=== PATIENT | male | born 1945 | race Caucasian/White ===

== ENCOUNTER → 2018-02-17 10:19 | Outpatient (CLI) | payer MEDICARE, OTHER, SELFPAY ==
[2018-02-17 12:15] LABS: PSA,Total- Diagnostic 6.44 ng/mL (0.0-4.0)
== END ==
PROVIDERS: Family Provider Internal Medicine; PCP Internal Medicine; Visit Provider Nurse Practitioner Adult Health
DX: R97.20 Elevated prostate specific antigen [PSA] (principal)
CPT/HCPCS: 36415; 84153

== ENCOUNTER → 2018-03-10 08:00 | Outpatient (CLI) | payer MEDICARE, OTHER, SELFPAY ==
--- NOTE | 2018-03-11 | PROSBIL_PTH ---
PATIENT: CHICHO TORRES LOC: [facility] U#:[id number] AGE/SX: 80/M ROOM: RE03/10/[address]: Dr. Agustín Sargent MD : 1945 BED: DIS: SPEC #: [id number] RECD: 03/11/18 13:07 STATUS: GONZALO GLENNA #: [id number] IND[place]: 03/11/18 00:[address]: Agustín Sargent DEPT: SURGICAL PATHOLOGY RECD BY: Orlando Edwards ENTERED: 03/11/18 13:08 SP TYPE: PROST BX WESLEY DR: Dr. Harshil Howell MD Tissues: A - PROSTATE RIGHT B - PROSTATE RIGHT C - PROSTATE RIGHT D - PROSTATE LEFT E - PROSTATE LEFT F - PROSTATE LEFT Procedures: PROSTATE BX HEADER OPERATION: Prostate biopsy PRE-OP DIAGNOSIS: Elevated PSA TISSUE SUBMITTED: A - Right apex, B - Right mid, C - Right base, D - Left apex, E - Left mid, F - Left base MICROSCOPIC DIAGNOSIS A. Right prostate, apex, core biopsy: Chronic inflammation with focal acute inflammation. Glandular atrophy. Focal high-grade prostatic intraepithelial neoplasia (HGPIN). B. Right prostate, mid, core biopsy: Chronic inflammation and focal glandular atrophy. C. Right prostate, base, core biopsy: Mild chronic inflammation and focal glandular atrophy. D. Left prostate, apex, core biopsy: Mild chronic inflammation. E. Left prostate, mid, core biopsy: Adenocarcinoma: [place] grade: 6 (3+3) Cores involved: 2 out of 2 Tissue involved: 50% Greatest tumor length: 5 mm F. Left prostate, base, core biopsy: Adenocarcinoma: [place] grade: 7 (3+4) Cores involved: 2 out of 2 Tissue involved: 90% Greatest tumor length: 10 mm (discontinuous) AM:alie 03/12/18 COMMENT Case has been reviewed in consultation with Dr. Sheppard who concurs with the above diagnosis. IDC:SJ MICROSCOPIC DESCRIPTION Slides are reviewed. GROSS DESCRIPTION A - Received is one container designated prostate, right apex. The specimen consists of two elongated fragments of light jerry-white soft tissue each measuring 0.6 cm in length and 0.1 cm in diameter. The specimen is totally submitted in one cassette. B - Received is one container designated prostate, right mid. The specimen consists of two elongated fragments of light jerry-white soft tissue each measuring 0.7 cm in length and 0.1 cm in diameter. The specimen is totally submitted in one cassette. C - Received is one container designated prostate, right base. The specimen consists of two elongated fragments of light jerry-white soft tissue measuring 0.7 and 1.3 cm in length and 0.1 cm in diameter. The specimen is totally submitted in one cassette. D - Received is one container designated prostate, left apex. The specimen consists of one elongated fragment of light jerry-white soft tissue measuring 1.2 cm in length and 0.1 cm in diameter. The specimen is totally submitted in one cassette. E - Received is one container designated prostate, left mid. The specimen consists of two elongated fragments of light jerry-white soft tissue measuring 0.5 and 0.7 cm in length and 0.1 cm in diameter. The specimen is totally submitted in one cassette. F - Received is one container designated prostate, left base. The specimen consists of two elongated fragments of light jerry-white soft tissue measuring 1.2 and 1.5 cm in length and 0.1 cm in diameter. The specimen is totally submitted in one cassette. / SJ:rg 03/11/18 TC:0 CPT: G0146
== END ==
PROVIDERS: Family Provider Internal Medicine; PCP Internal Medicine; Referring Provider Urology; Visit Provider Urology
DX: C61 Malignant neoplasm of prostate (principal); N42.31 Prostatic intraepithelial neoplasia
CPT/HCPCS: 88305; G0416

== ENCOUNTER → 2018-03-31 07:45 | Outpatient (CLI) | payer MEDICARE, OTHER, SELFPAY ==
--- NOTE | 2018-03-31 08:19 | NM_ITS ---
CLINICAL: 73-year-old male with reported history of primary prostate carcinoma. WHOLE BODY 99m Tc MDP RADIONUCLIDE BONE SCINTIGRAPHY COMPARISON: None available FINDINGS: Following the intravenous administration of 24.6 mCi of 99m Tc MDP, whole body bone images reveal: 1. Increased radiopharmaceutical concentration is identified in the upper-mid cervical spine posteriorly on the left and right, the acromioclavicular and sternoclavicular compartments of both shoulders, elbows bilaterally, left wrist, fifth lumbar vertebra posteriorly on the left, right and left knees, the left midfoot. 2. The remaining skeletal structures are scintigraphically unremarkable with normal-appearing renal images and urinary bladder activity identified. NM/Bone Scan Whole Body IMPRESSION: 1. The increase in radiopharmaceutical concentration identified in the cervical and lumbar spine, bilateral shoulder and elbow articulations, left wrist, knees bilaterally and left midfoot is most consistent with degenerative arthritis. 2. There is no definitive typical scintigraphic evidence of skeletal metastatic disease on the current examination. Electronically Signed: Prem Cannon DO at 23:57 EDT Tel , Service support ,
== END ==
PROVIDERS: Family Provider Internal Medicine; PCP Internal Medicine; Referring Provider Urology; Visit Provider Urology
DX: C61 Malignant neoplasm of prostate (principal)
CPT/HCPCS: 78306

== ENCOUNTER → 2018-04-06 13:09 | Outpatient (CLI) | payer MEDICARE, OTHER, SELFPAY ==
--- NOTE | 2018-04-06 13:13 | CT_ITS ---
STUDY: CT ABDOMEN AND PELVIS WITH CONTRAST REASON FOR EXAM: Male, 73 years old. New diagnosis of prostate cancer RADIATION DOSAGE (If Supplied By Facility): CTDIvol = ( 13.23 ) mGy, DLP = ( 715.02 ) mGycm TECHNIQUE: Transaxial images were obtained from the dome of the diaphragm to the symphysis pubis without oral contrast. 100 ml of Isovue 300 contrast was administered. Sagittal and coronal images were reconstructed. Individualized dose optimization techniques were used for this CT. COMPARISON: 2014 FINDINGS: There are chronic interstitial fibrotic changes of the lung bases. The visualized portions of the heart are within normal limits. There is decreased attenuation of the liver consistent with steatosis. There are multiple gallstones. Normal spleen. Normal pancreas. Normal bilateral adrenal glands. Normal right kidney. Normal left kidney. Normal visualized stomach. Normal small intestine. Normal colon. There is non-visualization of the appendix. Normal abdominal aorta. Normal inferior vena cava. Normal retroperitoneum. Normal urinary bladder. There is enlargement of the prostate gland. Normal abdominal wall. Normal osseous structures. CT/Abdomen/Pelvis WITH Contrast IMPRESSION: Fatty liver, no discrete lesion Cholelithiasis Prostate enlargement with calcifications, no demonstrated mass Electronically Signed: Arnulfo Alvarenga MD at 13:17 EST , Service support ,
[2018-04-06 13:41] LABS: CREATININE FINGERSTICK 0.8 mg/dL (0.70-1.30)
== END ==
PROVIDERS: Family Provider Internal Medicine; PCP Internal Medicine; Referring Provider Urology; Visit Provider Urology
DX: C61 Malignant neoplasm of prostate (principal)
CPT/HCPCS: 74177; Q9967

== ENCOUNTER 2018-05-13 06:22 | Inpatient (IN) | payer MEDICARE, OTHER, SELFPAY ==
[2018-05-05 14:43] VITALS: BP 146/86; PULSE 61; RESP 16; TEMP 36.9; O2SAT 95; BMI 31.8
[2018-05-05 14:45] LABS: Hematocrit 42.4 % (40-54); Hemoglobin 14.2 g/dl (13.0-16.5); Mean Corp Hgb Conc 33.5 g/gl (32-36); Mean Corpuscular Volume 92.6 fL (80-94); Mean Platelet Vol. 10.2 fl (6.2-12.0); Platelet Count 185 K/mm3 (150-450); RBC Distribution Width SD 43.5 fl (35.1-43.9); Red Blood Count 4.58 M/mm3 (4.6-6.2); Scan Indicated on CBC? Y/N NO; White Blood Count 4.6 K/mm3 (4.4-11.0)
[2018-05-05 15:04] LABS: Anion Gap 8 (5-15); BUN 17 mg/dL (7-18); BUN/Creat Ratio 12.1 RATIO (10-20); Calcium,Total 9.5 mg/dL (8.5-10.1); Chloride 107 mmol/L (98-107); Creatinine, Serum 1.41 mg/dL (0.70-1.30); EST Glomerular Filtration Rate 53 mL/min (>60); Est Glom Filt Rate - Afr Amer 64 mL/min (>60); Estimated Creatinine Clearance 38.67 ml/min; Glucose 99 mg/dL (74-106); Potassium 3.9 mmol/L (3.5-5.1); Sodium Level 144 mmol/L (136-145)
[2018-05-13] VITALS (11 sets, daily range): BP systolic 105–128; BP diastolic 51–76; PULSE 64–93; RESP 16; TEMP 36.1–36.9; O2SAT 92–95; BMI 31.8
--- NOTE | 2018-05-13 | PROST_PTH ---
PATIENT: CHICHO TORRES LOC: [facility] U#:[id number] AGE/SX: 73/M ROOM: [id number] RE05/13/[address]: Dr. Agustín Sargent MD : 1945 BED: 1 DIS: 05/15/2018 SPEC #: [id number] RECD: 05/13/18 15:14 STATUS: GONZALO GLENNA #: [id number] [place]: 05/13/18 00:[address]: Agustín Sargent DEPT: SURGICAL PATHOLOGY RECD BY: Orlando Edwards ENTERED: 05/13/18 15:15 SP TYPE: PROSTATE OTHR DR: Dr. Harshil Howell MD Tissues: A - Lymph node of pelvis, NOS B - Lymph node of pelvis, NOS C - Adipose tissue D - Prostate, NOS Procedures: Surgery Specimen Level IV Surgery Specimen Level V Surgery Specimen Level HEADER OPERATION: Lap robotic prostatectomy, nerve monitoring PRE-OP DIAGNOSIS: Malignant neoplasm of prostate TISSUE SUBMITTED: A - Right lymph node, pelvic, B - Left lymph node, pelvic, C - Fat over prostate, D - Prostate MICROSCOPIC DIAGNOSIS A. Right pelvic lymph node, biopsy: One lymph node, negative for metastatic carcinoma. B. Left pelvic lymph node, biopsy: One lymph node, negative for metastatic carcinoma. C. Fat over prostate, biopsy: Mature adipose tissue, negative for carcinoma. D. Prostate, radical prostatectomy: Prostatic adenocarcinoma. See cancer summary below. SJ:alie 05/15/18 PROSTATE CANCER (RADICAL) SUMMARY: Procedure - radical prostatectomy Prostate size - 3.5 cm from apex to base, 4 cm transversely and 4 cm anterior posteriorly Prostate weight - 52 gm Lymph node sampling - pelvic lymph node dissection Histologic type - adenocarcinoma (acinar, not otherwise specified) Histologic grade (Alanna Pattern): Primary pattern - 3 Secondary pattern - 4 Tertiary pattern - not identified Total [place] score - 7 Tumor Quantitation: Proportion (%) of prostate involved by tumor - ~10% Extraprostatic extension - not identified Seminal vesicle invasion - not identified Margins - margins are free of tumor. Treatment effect on carcinoma - no known presurgical therapy Lymph-Vascular invasion - not identified Perineural invasion - present, focal Regional lymph nodes: Number examined - 2 Number involved - 0 Distant metastasis - not applicable Additional pathologic findings - chronic inflammation. - Focal high-grade prostatic intraepithelial neoplasia (HGPIN). Ancillary studies - PATHOLOGIC STAGE: pT2c pN0 Mx The above summary is in compliance with [employer] [place] [employer] (CAP) Cancer Protocols Checklist and [place] Joint Committee on Cancer (AJCC), Staging Manual, 8th Ed. COMMENT The tumor in the right lobe involves the middle portion of the prostate, and present in slide # 12 and 14 and measures 0.6 x 0.3 cm (measured microscopically). The tumor in the left lobe involves apical, mid and basal portion of the prostate, and present in slide # 7, 8, 11, 13 and 20 and measures 2.5 x 1 cm (measured microscopically). Please make reference to previous specimen ([id number]) left prostate, mid, core biopsy and left prostate, base, core biopsy with diagnosis of adenocarcinoma. Case has been reviewed in consultation with Dr. Almanzar who concurs with the above diagnosis. IDC:AM MICROSCOPIC DESCRIPTION Slides are reviewed. GROSS DESCRIPTION A - Received in fixative is one container labeled with the patient's name and designated right lymph node pelvic. The specimen consists of a piece of yellow adipose tissue measuring 2.5 x 1 x 0.5 cm. The specimen is bisected and submitted entirely in one cassette. It will be submitted after overnight fixation. / : 05/13/18 B - Received in fixative is one container labeled with the patient's name and designated left lymph node pelvic. The specimen consists of a piece of yellow adipose tissue measuring 2 x 2 x 0.7 cm. The specimen is bisected and submitted entirely in one cassette. Sections will be submitted after overnight fixation. / : 05/13/18 C - Received in fixative is one container labeled with the patient's name and designated fat over prostate. The specimen consists of two variable sized pieces of yellow adipose tissue that in aggregate measure 4 x 3 x 0.5 cm. No mass lesion is identified. The entire specimen is submitted in two cassettes. Sections will be submitted after overnight fixation. / : 05/13/18 D - Received in fixative is one container labeled with the patient's name and designated prostate. The specimen consists of a radical prostatectomy specimen consisting of prostate, bilateral seminal vesicles and vas deferens weighing 52 gm. The prostate measures 3.5 cm from apex to apex, 4 cm transversely and 4 cm anterior-posteriorly. The right seminal vesicle measures 2.5 x 1 x 0.5 cm and right vas deferens measures 2 cm in length and 0.5 cm in diameter. The left seminal vesicle measures 2 x 1 x 0.4 cm and left vas deferens measures 2.5 cm in length and 0.5 cm in diameter. The prostate is inked as follows: anterior surface - yellow, posterior surface - black, right lateral surface - blue, left lateral surface - green. The seminal vesicles and vas deferens are inked as follows: posterior surface right and left seminal vesicles and right and left vas deferens - black, anterior surface right seminal vesicle and vas deferens - blue, anterior surface left seminal vesicle and vas deferens - green. Sections do not reveal any obvious mass lesion. Ocean Import Representative sections are submitted in 20 cassettes as follows: 1 - right seminal vesicle and vas deferens, 2 - left seminal vesicle and vas deferens, 3 - apical margin, enface, 4?-?bladder base margin, enface, 5-9 - apical portion of prostate, 10-15 - middle portion prostate, 1620 - basal portion prostate. / EMORY:alie 05/14/18 TC:0 CPT: 14099, 32496 x2, 72127
--- NOTE | 2018-05-13 08:34 | PCM.DC.URO ---
Discharge Diet: Light diet - advance as tolerated, Soft diet Discharge Activity: May Not Drive, May not drive while taking narcotic pain medications., May Shower Return to work on:: 06/24/18 May shower in (days): 1 May resume sexual activity in: 6 weeks Call your doctor if your incision/area has: Continuous Slow Oozing, Sudden Increased Bleeding, Increased Pain/ Swelling, Increased Redness, Foul Smelling Discharge, Swelling at the incision site Call your doctor if you observe: Fever of 101 or Higher Suture Line Care: Avoid Pulling/Pushing, Avoid Pinching/Bending Catheter: Ceron to leg bag, Ceron to large bag Drain: [place] Instructions: Discharge Instructions for Radical Prostatectomy Allergies/Adverse Reactions: Allergies meperidine HCl [From Demerol] Adverse Reaction (Verified 05/05/18 14:35) diaphoretic,palpatations Medications to take at Discharge Amlodipine [Norvasc] 5 mg PO DAILY 05/05/18 Atenolol [Tenormin (Beta Elier)] 50 mg PO QHS 05/05/18 Atorvastatin Calcium [Lipitor] 40 mg PO QHS 05/05/18 Multivitamin [Multiple Vitamins] 1 each PO DAILY 05/05/18 Tamsulosin HCl [Flomax] 0.4 mg PO QHS 05/05/18 Acetaminophen [Tylenol Extra Strength] 500 mg PO Q4H PRN PRN #20 tablet 05/13/18 Ciprofloxacin [Cipro] 500 mg PO BID #14 tablet 05/13/18 Docusate Sodium [Colace] 100 mg PO BID #20 capsule 05/13/18 Ibuprofen [Motrin] 600 mg PO Q6H PRN PRN #20 tablet 05/13/18 The following prescriptions were given: Acetaminophen [Tylenol Extra Strength] 500 mg PO Q4H PRN PRN #20 tablet PRN Reason: Pain Ibuprofen [Motrin] 600 mg PO Q6H PRN PRN #20 tablet PRN Reason: Pain Ciprofloxacin [Cipro] 500 mg PO BID #14 tablet Docusate Sodium [Colace] 100 mg PO BID #20 capsule Orders to be completed after discharge: Type & Screen Time Frame: 05/13/18, Location: None Selected Primary Care Physician: Harshil Howell MD [Primary Care Provider] - Test Results: Test results from this visit will be discussed in further detail at your follow-up appointment, if applicable. Please Follow Up With: Agustín Sargent MD When: Next morning, call the office. Proposed Discharge Date: 05/14/18
[2018-05-13] MEDS: Cefazolin 2 GM in 0.9% Normal Saline 100 ML IV (08:35)
[2018-05-13] MEDS: Bupivacaine Mpf 0.5% 30 ML VIAL (12:20)
--- NOTE | 2018-05-13 12:25 | PCM.OPRPT ---
Report of Operation Date of Procedure: 05/13/18 Pre-Operative Diagnosis: Prostate cancer, BPH with obstruction urgency frequency Post-Operative Diagnosis: Same Surgery/Procedure Performed:: Laparoscopic robotic assisted radical prostatectomy with bilateral nerve sparing, left and right pelvic lymph node dissection, EMG monitoring of pelvic nerves and sphincter, suture suspension of the urethra Description of Surgical Findings:: 73-year-old male with a history of prostate cancer was counseled regarding the options of treatment we talked about doing radiation, surgery, observation, we talked about the side effects of radiation including radiation cystitis radiation proctitis fistula formation radiation injury and burn, we talked about the side effects of surgery including erectile dysfunction, impotence, lack of bladder control, leakage, risk with anesthesia risk of surgery, we talked about the risk of active surveillance including development of worse cancer non-curative cancer. After discussing the options with the patient he wants to proceed with radical prostatectomy when I do bilateral nerve sparing today. 73-year-old male taken back to the operating room after smooth induction of anesthesia he was placed supine on the table we then placed in the dorsolithotomy position for a robotic approach to the pelvis, the abdomen shaved and prepped and draped in usual sterile fashion, I advanced the Veress needle into the abdomen and created the peritoneal cavity with CO2 gas. We then placed our camera trocar right and left trocar second assistant fitness manager trocar we placed our air seal port, we placed a an assistant fitness manager suction trocar. Once I got into the abdomen dissected some of the adhesions of the colon against the lateral wall on the right side and some of the left side once this was released then I went posterior to the bladder identified the right vas deferens for the entire case we only used bipolar no electrocautery was used no monopolar just bipolar for caloric control and small vessels. I dissected out the right vas deferens followed down to the pelvis dissected out the right vas deferens and right seminal vesicle, I then dissected out the left vas deferens left seminal vesicle, I then incised the do not be his fascia and dissected the fat plane below the prostate and the rectum, we then pulled out of the pelvis I opened up the space of Retzius in the right side of the pelvis dropped the bladder open up the space of Retzius the left side of the bladder transected through the attachments of the medial and medial and middle umbilical ligaments transected through this electrocautery using bipolar, bladder was then placed on traction with the fourth arm, we then cleared out the space of Retzius went to the pelvic lymph nodes on the right side identified the right external obturator artery and vein dissected the lymph node tissue proximal to this up to the noted [place] and then off the lateral wall I dissected the lymph node tissue and then went down to the obturator nerve identified the obturator nerve and I dissected the tissue off the machine operator nerve and then put clips as I was dissecting this tissue off in the right side made sure to obtain good hemostasis and after dissecting the lymph node tissue in the right side the specimens were handed off to the nurse for permanent. The tissue looked benign in nature on gross inspection. We then went to the left side and identified the left iliac artery and iliac vein and the obturator space was then dissected out the lateral pelvic sidewall was cleaned off the noted [place] was taken to use clips as well as taking this and then came down to the obturator nerve on the left side. After clipping all the tissue then I used a little bipolar to control bleeding the machine operator nerve was not injured during the dissection and the tissue was sent off as a permanent section again this tissue appeared benign. I then cleaned the fat off the prostate this was sent off as fat fat over prostate as a specimen we then incised the lateral pelvic sidewall the fascia and dissected the levator muscles off the prostate all the way to the apex on the right side and then did this on the left side as well incised the endopelvic fascia and dissected the levator muscles off the prostate off the left side all the way up to the apex we then incised the prostate pubic O ligaments on both the left and right side transected to this and then I used a dorsal vein stitch and stitch the dorsal vein complex with a [id number] stitch using 0 Vicryl we then came back to the junction between the bladder and the prostate using bipolar I dissected between the bladder and prostate down to the catheter we then deliver the catheter put in upper traction and then dissected between the bladder and prostate posteriorly until I reached the vas deferens and seminal vesicles then we went to the left side of the prostate inspected the left side inspect the right side we passed the EMG electrodes into the abdomen passed the electrodes through the fat to hold him to the lateral sidewalls and then placed electrodes into the levator muscles in the right side and the left side of the pelvic lateral romero. We then checked for the placement of the the nerves we stimulated along the pelvic lateral wall and identified the nerves all the way up along the course of the prostate on the right side and all the way along the course of proximal in the left side these nerves were identified with the action potential seen on the screen with the EMG monitoring also the tech to verify the nerves were responding after both the right and left nerves were identified I then went to the prostate incised the capsule over the prostate swept the nerves off the prostate on the right side and then started retrograde retrograde dissection on the right side towards the pedicle once I have the nerves off the prostate in the right side then I could identify the pedicle clearly I clipped the pedicle with 2 clips and then transected to the pedicle and they could sweep the nerves off the prostate on the right side all the way to the apex these came off very nicely with no transection or injury to the nerves and no violation of the prostate capsule then went to the left side and identified the nerve bundle on the left side we used the EMG monitoring to relate these nerves and identified the action potential location of these nerves I incised the capsule the prostate swept the capsule off the prostate and then identified the nerve bundles running underneath the prostate capsule and gently swept this off the prostate and then worked all the way my way back in the left side and then came to the pedicle in the left side with clips and transected to the clips with with sharp scissors after transecting the vascular pedicles I then gently swept the nerve bundles off the left posterior through the prostate all the way to the apex after it been done dissecting the prostate nerve bundles off the prostate in the left and right side we then checked the EMG monitoring again right side was still firing and accurate action potential along the entire course of the right side left side was so far with good action potential the course of the left side I then dissected through the dorsal vein complex complex and transected through here circumferentially dissected around the urethra place extra stitches in the dorsal vein complex to control bleeding then transected through the prostate and urethra. The prostate was then removed the put in the Endo Catch bag inspected the urethra there was no prostate tissue and the urethra nice dissection on both sides with a good control of both the left and right nerve bundles and then we checked the EMG monitoring of the sphincter will put when the electrodes on the sphincter itself and stimulated I got a good response in a good action potential from the sphincter and a good coaptation from the sphincter itself. We then came back to the bladder neck for the suture suspension we first closed the bladder neck to make it nice and small and then we suspended the urethra with stitches and we went from the urethra to the bladder neck to complete the series suture suspension of the urethra to the bladder neck this was done over a catheter after completing this then catheter was put into the bladder and placement of the catheter 1 of the stitches had gone to the Jones catheter at the rate we at the pull the catheter up and then pulled the stitch off the catheter and then we put a new catheter into the bladder is a 18 [place] tip catheter we completed the anastomosis we flushed the bladder there was no leakage from what we could see we then left the drain and below the anastomosis we undocked the robot we extracted the prostate through the supraumbilical port we closed the port with interrupted 0 Vicryl stitches through the fascia and then we also closed the variceal port with a Juan Carlos Almendarez stitch all the needles were accounted for the sponges the dressings were accounted for minimal bleeding during the case patient's anesthetic is currently being reversed with minimal blood loss and a good anastomosis good sparing of both nerve bundles in the right left side and good preservation of the nerves with action potential that was positive after the dissection. Patient currently being extubated from anesthesia and will go to talk to the family. Type of Anesthesia:: General Drains: jones, Drain Estimated Blood Loss (mL): 100cc - Admit VTE Documentation VTE Present on Admission: No VTE Mechan Device Prophylaxis: SCD's
--- NOTE | 2018-05-13 12:36 | OP.PCM_ITS ---
Report of Operation Date of Procedure: 05/13/18 Pre-Operative Diagnosis: Prostate cancer, BPH with obstruction urgency frequency Post-Operative Diagnosis: Same Surgery/Procedure Performed:: Laparoscopic robotic assisted radical prostatectomy with bilateral nerve sparing, left and right pelvic lymph node dissection, EMG monitoring of pelvic nerves and sphincter, suture suspension of the urethra Description of Surgical Findings:: 73-year-old male with a history of prostate cancer was counseled regarding the options of treatment we talked about doing radiation, surgery, observation, we talked about the side effects of radiation including radiation cystitis radiation proctitis fistula formation radiation injury and burn, we talked about the side effects of surgery including erectile dysfunction, impotence, lack of bladder control, leakage, risk with anesthesia risk of surgery, we talked about the risk of active surveillance including development of worse cancer non- curative cancer. After discussing the options with the patient he wants to proceed with radical prostatectomy when I do bilateral nerve sparing today. 73-year-old male taken back to the operating room after smooth induction of anesthesia he was placed supine on the table we then placed in the dorsolithotomy position for a robotic approach to the pelvis, the abdomen shaved and prepped and draped in usual sterile fashion, I advanced the Veress needle into the abdomen and created the peritoneal cavity with CO2 gas. We then placed our camera trocar right and left trocar second assistant service manager trocar we placed our air seal port, we placed a an assistant service manager suction trocar. Once I got into the abdomen dissected some of the adhesions of the colon against the lateral wall on the right side and some of the left side once this was released then I went posterior to the bladder identified the right vas deferens for the entire case we only used bipolar no electrocautery was used no monopolar just bipolar for caloric control and small vessels. I dissected out the right vas deferens followed down to the pelvis dissected out the right vas deferens and right seminal vesicle, I then dissected out the left vas deferens left seminal vesicle, I then incised the do not be his fascia and dissected the fat plane below the prostate and the rectum, we then pulled out of the pelvis I opened up the space of Retzius in the right side of the pelvis dropped the bladder open up the space of Retzius the left side of the bladder transected through the attachments of the medial and medial and middle umbilical ligaments transected through this electrocautery using bipolar, bladder was then placed on traction with the fourth arm, we then cleared out the space of Retzius went to the pelvic lymph nodes on the right side identified the right external obturator artery and vein dissected the lymph node tissue proximal to this up to the noted Straughn and then off the lateral wall I dissected the lymph node tissue and then went down to the obturator nerve identified the obturator nerve and I dissected the tissue off the composition board press operator nerve and then put clips as I was dissecting this tissue off in the right side made sure to obtain good hemostasis and after dissecting the lymph node tissue in the right side the specimens were handed off to the nurse for permanent. The tissue looked benign in nature on gross inspection. We then went to the left side and identified the left iliac artery and iliac vein and the obturator space was then dissected out the lateral pelvic sidewall was cleaned off the noted Straughn was taken to use clips as well as taking this and then came down to the obturator nerve on the left side. After clipping all the tissue then I used a little bipolar to control bleeding the composition board press operator nerve was not injured during the dissection and the tissue was sent off as a permanent section again this tissue appeared benign. I then cleaned the fat off the prostate this was sent off as fat fat over prostate as a specimen we then incised the lateral pelvic sidewall the fascia and dissected the levator muscles off the prostate all the way to the apex on the right side and then did this on the left side as well incised the endopelvic fascia and dissected the levator muscles off the prostate off the left side all the way up to the apex we then incised the prostate pubic O ligaments on both the left and right side transected to this and then I used a dorsal vein stitch and stitch the dorsal vein complex with a [id number] stitch using 0 Vicryl we then came back to the junction between the bladder and the prostate using bipolar I dissected between the bladder and prostate down to the catheter we then deliver the catheter put in upper traction and then dissected between the bladder and prostate posteriorly until I reached the vas deferens and seminal vesicles then we went to the left side of the prostate inspected the left side inspect the right side we passed the EMG electrodes into the abdomen passed the electrodes through the fat to hold him to the lateral sidewalls and then placed electrodes into the levator muscles in the right side and the left side of the pelvic lateral romero. We then checked for the placement of the the nerves we st imulated along the pelvic lateral wall and identified the nerves all the way up along the course of the prostate on the right side and all the way along the course of proximal in the left side these nerves were identified with the action potential seen on the screen with the EMG monitoring also the tech to verify the nerves were responding after both the right and left nerves were identified I then went to the prostate incised the capsule over the prostate swept the nerves off the prostate on the right side and then started retrograde retrograde dissection on the right side towards the pedicle once I have the nerves off the prostate in the right side then I could identify the pedicle clearly I clipped the pedicle with 2 clips and then transected to the pedicle and they could sweep the nerves off the prostate on the right side all the way to the apex these came off very nicely with no transection or injury to the nerves and no violation of the prostate capsule then went to the left side and identified the nerve bundle on the left side we used the EMG monitoring to relate these nerves and identified the action potential location of these nerves I incised the capsule the prostate swept the capsule off the prostate and then identified the nerve bundles running underneath the prostate capsule and gently swept this off the prostate and then worked all the way my way back in the left side and then came to the pedicle in the left side with clips and transected to the clips with with sharp scissors after transecting the vascular pedicles I then gently swept the nerve bundles off the left posterior through the prostate all the way to the apex after it been done dissecting the prostate nerve bundles off the prostate in the left and right side we then checked the EMG monitoring again right side was still firing and accurate action potential along the entire course of the right side left side was so far with good action potential the course of the left side I then dissected through the dorsal vein complex complex and transected through here circumferentially dissected around the urethra place extra stitches in the dorsal vein complex to control bleeding then transected through the prostate and urethra. The prostate was then removed the put in the Endo Catch bag inspected the urethra there was no prostate tissue and the urethra nice dissection on both sides with a good control of both the left and right nerve bundles and then we checked the EMG monitoring of the sphincter will put when the electrodes on the sphincter itself and stimulated I got a good response in a good action potential from the sphincter and a good coaptation from the sphincter itself. We then came back to the bladder neck for the suture suspension we first closed the bladder neck to make it nice and small and then we suspended the urethra with stitches and we went from the urethra to the bladder neck to complete the series suture suspension of the urethra to the bladder neck this was done over a catheter after completing this then catheter was put into the bladder and placement of the catheter 1 of the stitches had gone to the Jones catheter at the rate we at the pull the catheter up and then pulled the stitch off the catheter and then we put a new catheter into the bladder is a 18 Kazakh telida tip catheter we completed the anastomosis we flushed the bladder there was no leakage from what we could see we then left the drain and below the anastomosis we undocked the robot we extracted the prostate through the supraumbilical port we closed the port with interrupted 0 Vicryl sti tches through the fascia and then we also closed the variceal port with a Juan Carlos Almendarez stitch all the needles were accounted for the sponges the dressings were accounted for minimal bleeding during the case patient's anesthetic is currently being reversed with minimal blood loss and a good anastomosis good sparing of both nerve bundles in the right left side and good preservation of the nerves with action potential that was positive after the dissection. Patient currently being extubated from anesthesia and will go to talk to the family. Type of Anesthesia:: General Drains: jones, Drain Estimated Blood Loss (mL): 100cc - Admit VTE Documentation VTE Present on Admission: No VTE Mechan Device Prophylaxis: SCD's
[2018-05-13 13:29] LABS: Hematocrit 40.2 % (40-54); Hemoglobin 13.3 g/dl (13.0-16.5); Mean Corp Hgb Conc 33.1 g/gl (32-36); Mean Corpuscular Hgb 30.8 pg (27.0-32.0); Mean Corpuscular Volume 93.1 fL (80-94); Platelet Count 204 K/mm3 (150-450); RBC Distribution Width CV 12.7 % (11.6-14.6); RBC Distribution Width SD 43.7 fl (35.1-43.9); Red Blood Count 4.32 M/mm3 (4.6-6.2); Scan Indicated on CBC? Y/N NO; White Blood Count 12.5 K/mm3 (4.4-11.0)
[2018-05-13 13:38] LABS: Anion Gap 9 (5-15); BUN 20 mg/dL (7-18); BUN/Creat Ratio 20.2 RATIO (10-20); Calcium,Total 8.6 mg/dL (8.5-10.1); Chloride 108 mmol/L (98-107); Creatinine, Serum 0.99 mg/dL (0.70-1.30); EST Glomerular Filtration Rate 79 mL/min (>60); Est Glom Filt Rate - Afr Amer 96 mL/min (>60); Estimated Creatinine Clearance 55.08 ml/min; Glucose 119 mg/dL (74-106); Potassium 4.3 mmol/L (3.5-5.1); Sodium Level 140 mmol/L (136-145)
[2018-05-13] MEDS: Lactated Ringers 1,000 ML 125 ML IV ×2 (14:36→23:19)
[2018-05-13] MEDS: Ketorolac 15 MG/ML Vial IV ×2 (15:32→20:43)
[2018-05-13] MEDS: 0.9% NaCl Peripheral Flush Adult/Peds IV (15:34)
[2018-05-13] MEDS: Atorvastatin Calcium 40 MG Tablet PO (20:48)
[2018-05-13] MEDS: Ciprofloxacin 500 MG Tablet PO (20:48)
[2018-05-13] MEDS: Atenolol 50 MG Tablet PO (20:49)
[2018-05-14] VITALS (7 sets, daily range): BP systolic 106–145; BP diastolic 48–62; PULSE 67–82; RESP 16–18; TEMP 36.8–37.4; O2SAT 86–96
[2018-05-14] MEDS: Ketorolac 15 MG/ML Vial IV ×3 (02:45→15:22)
[2018-05-14 06:12] LABS: Hematocrit 33.4 % (40-54); Hemoglobin 11.2 g/dl (13.0-16.5); Mean Corp Hgb Conc 33.5 g/gl (32-36); Mean Corpuscular Hgb 31.5 pg (27.0-32.0); Mean Corpuscular Volume 94.1 fL (80-94); Mean Platelet Vol. 10.2 fl (6.2-12.0); Platelet Count 169 K/mm3 (150-450); RBC Distribution Width CV 12.6 % (11.6-14.6); RBC Distribution Width SD 41.6 fl (35.1-43.9); Red Blood Count 3.55 M/mm3 (4.6-6.2); White Blood Count 5.7 K/mm3 (4.4-11.0)
[2018-05-14 06:13] LABS: Scan Indicated on CBC? Y/N NO
[2018-05-14] MEDS: Lactated Ringers 1,000 ML 125 ML IV (06:53)
--- NOTE | 2018-05-14 07:00 | NURSING ---
Pt up walking halls this AM with SBA. Pt was on room air and O2 sats were 85%. Assisted pt back to room and 3L NC reapplied. Sats immediately came back up to 93%. Pt denied SOB and stated he felt fine. no distress noted. will pass on to dayshift.
--- NOTE | 2018-05-14 07:57 | PCM.PN.BLA ---
Progress Note doing well after prostatectomy cierra removed jones urine clear home today with jones and lunch ambulate.
[2018-05-14] MEDS: Ciprofloxacin 500 MG Tablet PO ×2 (10:09→21:04)
[2018-05-14] MEDS: amLODIPine 5 MG Tablet PO (10:09)
[2018-05-14] MEDS: Multivitamins,Therapeutic Tablet 1 TABLET PO (10:10)
[2018-05-14] MEDS: 0.9% NaCl Peripheral Flush Adult/Peds IV ×4 (10:11→15:23)
--- NOTE | 2018-05-14 11:55 | CASEMGMT ---
CLAUDETTE REA ASSESSMENT D/C PLAN: Home with family support and discharge plans in place. Face to Face with patient for initial transition planning/care coordination assessment. CLAUDETTE REA introduced self and role at [facility]. Pt voices understanding and consents to assessment at this time. Pt sitting up in bed, in no distress at this time. Pt is A/O at this time and answers all questions appropriately. Care providers, pharmacy, and demographics verified/updated at this time. PCP: Dante Specialists: [facility] Preferred Pharmacy: [facility]. Insurance: [facility], A[employer]. Prescription Benefit: [employer] Living Will/HPOA: States does not have LW or HCPOA . Interested in more information but states does not want to talk with SW at this time to complete paperwork. Provided information on advanced directives and given Social Service rac card with number to call if chooses in the future to utilize [facility] social work for advanced directive completion. Educated patient that, if patient so chooses, can come back to [facility] and meet with a SW as an outpatient to complete health care advanced directives. Patient expresses understanding. LNOK: Living Arrangements: Lives with his . No difficulties with stairs. Independent. Transportation: Pt states drives self and states no transportation concerns at this time. DME/HHC: States the only DME he uses is CPAP. Pt states no need for further DME at this time. Does not have home O2. [employer] is preferred DME company if he should need oxygen on D/C. Pt wishes to return home and states has no concerns with going home at time of discharge. Pt states does not smoke or drink ETOH. CM to follow for home oxygen needs and any further discharge planning/needs. Will need home oxygen qualification testing completed within 24 hrs of discharge. Pt voices no further concerns/needs at this time. Advised pt to ask for CM if any further questions/concerns/needs arise. Voices understanding. Maricarmen DEMARCO RN, CM
--- NOTE | 2018-05-14 12:03 | NURSING ---
This RN ordered to consult Dr. 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 Pt was planning on being discharged today by Dr. Sargent after lunch. Pt had been on 2L oxygen after procedure and t/o night due to absence of cpap. Oxygen was removed and pt found to be mid 80's on RA, despite using incentive spirometer as instructed. Pt was 83% up walking. Pt denied shortness of breath or any symptoms. states that she has observed him becoming more and more tired recently at home. Respiratory Therapy in to see pt- lungs clear, and spo2 checked by 3 different machines with different fingers. All show pt mid 80's sitting in bed. Dr. Sargent's office called- new orders given by agent read back by nurse Liz for Dr. Sargent's office. Attempted to call Dr. White's office and 2 messages left prior 1200- have not received return call. Hospitalist consulted- this RN paged admissions number with message of new consult. Pt and family aware that we will need to monitor him longer due to decrease in spo2- understanding verbalized.
--- NOTE | 2018-05-14 12:20 | RAD_ITS ---
STUDY: X-RAY CHEST REASON FOR EXAM: Male, 73 years old. Shortness of breath. TECHNIQUE: Single AP portable view of the chest. COMPARISON: None. FINDINGS: Decreased inspiratory volume. There is evidence of increased linear markings with areas of confluence at both lung bases suggestive of either bilateral basilar atelectasis and/or early infiltrate. There is also evidence of a calcified granulomas. There is blunting of the left costophrenic angle. Normal size heart. Normal mediastinum and alma. Normal visualized pulmonary arteries. There is atherosclerotic calcification of the aortic arch with tortuosity. Normal visualized thoracic spine. Prior fusion of the lower cervical spine. There is no demonstrated abnormality of the visualized soft tissue structures of the upper abdomen. RAD/Chest 1 View (Portable) IMPRESSION: Limited inspiratory effort with increased markings at the lung bases with areas of confluence. This is suggestive of a bibasilar atelectasis. Electronically Signed: Milan Vazquez MD at 13:12 EST Tel [phone], Service support ,
--- NOTE | 2018-05-14 12:29 | EKG12_ITS ---
Test Reason : SOB Blood Pressure : / mmHG Vent. Rate : 065 BPM Atrial Rate : 065 BPM P-R Int : 166 ms QRS Dur : 102 ms QT Int : 410 ms P-R-T Axes : 039 -13 002 degrees QTc Int : 426 ms Normal sinus rhythm Normal ECG When compared with ECG of 06-JUL-2010 13:02, No significant change was found Confirmed by JONNATHAN MARIE, JACINDA ([id number]), state editor STACY FARRELL ([id number]) on 05/22/2018 2:24:38 PM Referred By: Agustín Sargent Confirmed By:JACINDA DE SANTIAGO MD
--- NOTE | 2018-05-14 12:40 | PCM.PROGNOTE ---
Subjective: Chief complaint: Consultation for postoperative hypoxia. Patient seen and examined. He underwent laparoscopic robotic assisted radical prostatectomy with right and left pelvic lymph node dissection for prostate cancer and BPH with obstruction yesterday May 13, 2018. Today, patient was found to have pulse oximeter of 86% on ambulation. The patient himself denied any shortness of breath but nursing staff and his family noted that he has been short of breath after he came back from a walk around the floor. He denies any cough or sputum production. He denied chest pain, palpitation, dizziness or lightheadedness. He quit smoking long time ago. He denied any CAD. At this time, he is off oxygen and he denies any shortness of breath. His other vital signs are stable. - Physical Exam General: Alert, Oriented x3, Cooperative, No apparent distress HEENT: Atraumatic, PERRLA, EOMI, Normocephalic Oral: Moist Mucosa, No Gingival or Mucosal Lesions/ Ulcerations Neck: Supple, No JVD, Negative Carotid Bruits, Trachea Midline, Thyroid Normal Size and Texture Lungs: No rhonchi, No wheeze, Diminished, Rales, - - Diminished breath sounds in the bases, bilateral basal faint crackles, otherwise clear. Cardiovascular: Regular rate, Regular Rhythm, Normal S1, Normal S2, PMI Normal Abdomen: Bowel Sounds Present, Soft, Non Tender, Non-Distended, No Hepato-splenomegaly Extremities: No clubbing, No cyanosis, No edema Skin: No rashes, No breakdown Lymphatic: No Cervical, Supraclavicular, or Inguinal Adenopathy Neurological: Cranial nerves II-XII grossly intact, Motor Exam 5/5 strength throughout Psych/Mental Status: Normal Affect, Appropriate, Alert and oriented to time, place, person, mood and affect Vital Signs Temp Pulse Resp BP Pulse Ox 98.4 F 68 18 115/61 94 05/14/18 10:06 05/14/18 10:06 05/14/18 11:20 05/14/18 10:05/14/18 11:20 Oxygen Flow Rate (L/min) 3 Oxygen Delivery Method Nasal Cannula Weight: 175 lb Body Mass Index (BMI) 30.0 Intake and Output for Last 24 Hours 05/12/18 05/13/18 05/14/18 23:59 23:59 23:59 Intake Total 3482 / 3482 1094 / 1094 Output Total 1939 / 1939 1005 / 1005 Balance 1542 / 1542 89 / 89 Laboratory Tests Past 24 Hrs 05/13/18 05/13/18 05/14/18 13:10 13:10 05:33 WBC 12.5 H 5.7 RBC 4.32 L 3.55 L Hgb 13.3 11.2 L Hct 40.2 33.4 L MCV 93.1 94.1 H MCH 30.8 31.5 MCHC 33.1 33.5 RDW 12.7 12.6 RDW Differential 43.7 41.6 Plt Count 204 169 MPV 10.0 10.2 Sodium 140 Potassium 4.3 Chloride 108 H Carbon Dioxide 23.0 Anion Gap 9 BUN 20 H Creatinine 0.99 Estim Creat Clear Calc 55.08 Est GFR (MDRD) Af Amer 96 Est GFR (MDRD) Non-Af 79 BUN/Creatinine Ratio 20.2 H Glucose 119 H Calcium 8.6 Medical Necessity - Tobacco Use Smoking Status: Former smoker Tobacco Use: Non-smoker Assessment/Plan This is a 73 years old male patient underwent elective laparoscopic robotic assisted radical prostatectomy with left and right pelvic lymph node dissection for prostate cancer and BPH with obstruction and postoperatively, he developed hypoxia and he was asymptomatic. #1 postoperative asymptomatic hypoxia: Pulse ox was down up to 86% on room air. Patient denies any worsening shortness of breath but family noted that he is short of breath than usual. Chest x-ray reviewed, revealed minimal bilateral basal pulmonary vascular congestion likely due to IV fluids. Patient denies any chest pain. Plan: EKG, will give 1 dose of IV Lasix, ambulate, repeat walking pulse oximeter in 4 hours. If repeat walking pulse oximeter is above 88%, patient can be discharged home later today. #2 status post laparoscopic robotic assisted radical prostatectomy with left and right pelvic lymph node dissection: This was done for prostate cancer and BPH with obstruction. Postoperative day 1. Patient is on Ceron catheter. Routine blood work from yesterday reviewed, creatinine improved. Today, hemoglobin is 11.2 g/dL which is indicating hemodilution plus possible blood loss during surgery. Urine culture has clean urine. Urology is managing. #3 hypertension: Blood pressure stable, continue Norvasc and atenolol. #4 hyperlipidemia: Continue statins. #5 benign prostatic hypertrophy: Continue Flomax. #6 DVT prophylaxis: SCDs. This note was generated with [employer]van[employer] software. It may contain incorrect words, spelling, and punctuation that were not noted in checking the note before signing. Code Visit Inpatient E&M: 28299 Subs Hosp L2
--- NOTE | 2018-05-14 12:46 | PCM.PN.BLA ---
Progress Note 73-year-old male status post radical prostatectomy yesterday for prostate cancer was doing fairly well this morning, was planning to discharge today however he nurses reported that he was hypoxemia even in the hallways when walking so we will discharge is on hold we will do workup of consulted the hospitalist and pulmonary for workup he denies any chest pain or shortness of breath when I saw him this morning, hopefully to some pulmonary toilet etc. we will clear this issue will hold discharge for now.
--- NOTE | 2018-05-14 12:47 | PN_ITS ---
Subjective: Chief complaint: Consultation for postoperative hypoxia. Patient seen and examined. He underwent laparoscopic robotic assisted radical prostatectomy with right and left pelvic lymph node dissection for prostate cancer and BPH with obstruction yesterday May 13, 2018. Today, patient was found to have pulse oximeter of 86% on ambulation. The patient himself denied any shortness of breath but nursing staff and his family noted that he has been short of breath after he came back from a walk around the floor. He denies any cough or sputum production. He denied chest pain, palpitation, dizziness or lightheadedness. He quit smoking long time ago. He denied any CAD. At this time, he is off oxygen and he denies any shortness of breath. His other vital signs are stable. - Physical Exam General: Alert, Oriented x3, Cooperative, No apparent distress HEENT: Atraumatic, PERRLA, EOMI, Normocephalic Oral: Moist Mucosa, No Gingival or Mucosal Lesions/ Ulcerations Neck: Supple, No JVD, Negative Carotid Bruits, Trachea Midline, Thyroid Normal Size and Texture Lungs: No rhonchi, No wheeze, Diminished, Rales, - - Diminished breath sounds in the bases, bilateral basal faint crackles, otherwise clear. Cardiovascular: Regular rate, Regular Rhythm, Normal S1, Normal S2, PMI Normal Abdomen: Bowel Sounds Present, Soft, Non Tender, Non-Distended, No Hepato- splenomegaly Extremities: No clubbing, No cyanosis, No edema Skin: No rashes, No breakdown Lymphatic: No Cervical, Supraclavicular, or Inguinal Adenopathy Neurological: Cranial nerves II-XII grossly intact, Motor Exam 5/5 strength throughout Psych/Mental Status: Normal Affect, Appropriate, Alert and oriented to time, place, person, mood and affect Vital Signs Temp Pulse Resp BP Pulse Ox 98.4 F 68 18 115/61 94 05/14/18 10:06 05/14/18 10:06 05/14/18 11:20 05/14/18 10:05/14/18 11:20 Oxygen Flow Rate (L/min) 3 Oxygen Delivery Method Nasal Cannula Weight: 175 lb Body Mass Index (BMI) 30.0 Intake and Output for Last 24 Hours 05/12/18 05/13/18 05/14/18 23:59 23:59 23:59 Intake Total 3482 / 3482 1094 / 1094 Output Total 1939 1005 / 1005 Balance 1542 / 1542 89 / 89 Laboratory Tests Past 24 Hrs 05/13/18 05/13/18 05/14/18 13:10 13:10 05:33 WBC 12.5 H 5.7 RBC 4.32 L 3.55 L Hgb 13.3 11.2 L Hct 40.2 33.4 L MCV 93.1 94.1 H MCH 30.8 31.5 MCHC 33.1 33.5 RDW 12.7 12.6 RDW Differential 43.7 41.6 Plt Count 204 169 MPV 10.0 10.2 Sodium 140 Potassium 4.3 Chloride 108 H Carbon Dioxide 23.0 Anion Gap 9 BUN 20 H Creatinine 0.99 Estim Creat Clear Calc 55.08 Est GFR (MDRD) Af Amer 96 Est GFR (MDRD) Non-Af 79 BUN/Creatinine Ratio 20.2 H Glucose 119 H Calcium 8.6 Medical Necessity - Tobacco Use Smoking Status: Former smoker Tobacco Use: Non-smoker Assessment/Plan This is a 73 years old male patient underwent elective laparoscopic robotic assisted radical prostatectomy with left and right pelvic lymph node dissection for prostate cancer and BPH with obstruction and postoperatively, he developed hypoxia and he was asymptomatic. #1 postoperative asymptomatic hypoxia: Pulse ox was down up to 86% on room air. Patient denies any worsening shortness of breath but family noted that he is short of breath than usual. Chest x-ray reviewed, revealed minimal bilateral basal pulmonary vascular congestion likely due to IV fluids. Patient denies any chest pain. Plan: EKG, will give 1 dose of IV Lasix, ambulate, repeat walking pulse oximeter in 4 hours. If repeat walking pulse oximeter is above 88%, p atient can be discharged home later today. #2 status post laparoscopic robotic assisted radical prostatectomy with left and right pelvic lymph node dissection: This was done for prostate cancer and BPH with obstruction. Postoperative day 1. Patient is on Ceron catheter. Routine blood work from yesterday reviewed, creatinine improved. Today, hemoglobin is 11.2 g/dL which is indicating hemodilution plus possible blood loss during surgery. Urine culture has clean urine. Urology is managing. #3 hypertension: Blood pressure stable, continue Norvasc and atenolol. #4 hyperlipidemia: Continue statins. #5 benign prostatic hypertrophy: Continue Flomax. #6 DVT prophylaxis: SCDs. This note was generated with [employer] software. It may contain incorrect words, spelling, and punctuation that were not noted in checking the note before signing. Code Visit Inpatient E&M: 89240 Subs Hosp L2
[2018-05-14] MEDS: Furosemide 40 MG/4 ML Vial IV (13:05)
--- NOTE | 2018-05-14 15:03 | NURSING ---
Addendum entered by Liberty Stacy 05/14/18 15:49: notified of consult for hospitalist and orders for CXR as well as result and EKG. Original Note: Dr. White called in and states that he will be in to see pt. after his office hours today.
--- NOTE | 2018-05-14 15:10 | CASEMGMT ---
CLAUDETTE REA NOTE: Pt is not on home O2. Will need Home O2 qualification testing completed w/in 24 hrs of discharge. If pt requires home O2, please see Green sheet on chart. Pt prefers [employer] for [employer]. Maricarmen BRYANTN CLAUDETTE CM
[2018-05-14] MEDS: Atorvastatin Calcium 40 MG Tablet PO (21:04)
[2018-05-14] MEDS: Atenolol 50 MG Tablet PO (21:04)
[2018-05-14] MEDS: Acetaminophen 325 MG Tablet PO (21:12)
[2018-05-15 02:30] VITALS: BP 105/55; PULSE 64; RESP 18; TEMP 36.8; O2SAT 95
[2018-05-15 02:41] VITALS: RESP 18; O2SAT 95
[2018-05-15 07:00] VITALS: O2SAT 94
[2018-05-15 07:47] VITALS: O2SAT 96
--- NOTE | 2018-05-15 08:03 | PCM.PROGNOTE ---
- Physical Exam General: Alert, Oriented x3, Cooperative HEENT: Atraumatic, EOMI, Normocephalic Neck: Supple, No JVD, Negative Carotid Bruits Lungs: - - Diminished breath sounds right base, left chest improved air entry, no rales today, no rhonchi no cough, no dullness to percussion Cardiovascular: Regular rate, No murmurs Abdomen: Bowel Sounds Present, Soft, Non Tender Extremities: No edema, Capillary Refill Less than 3 Seconds Skin: No rashes, No breakdown Musculoskeletal: No Tenderness to Palpation of Joints or Extremities Neurological: Cranial nerves II-XII grossly intact Psych/Mental Status: Normal Affect, Appropriate Vital Signs Temp Pulse Resp BP Pulse Ox 98.2 F 64 18 105/55 L 96 05/15/18 02:30 05/15/18 02:30 05/15/18 02:41 05/15/18 02:30 05/15/18 07:47 Oxygen Flow Rate (L/min) 3 Oxygen Delivery Method Room Air Weight: 79.379 kg Body Mass Index (BMI) 30.0 Intake and Output for Last 24 Hours 05/13/18 05/14/18 05/15/18 23:59 23:59 23:59 Intake Total 3482 / 3482 1094 / 1094 1000 / 1000 Output Total 1940 / 1940 2155 / 2155 700 / 700 Balance 1542 / 1542 -1061 / -1061 300 / 300 Medical Necessity - Tobacco Use Smoking Status: Former smoker Tobacco Use: Non-smoker Assessment/Plan 73-year-old with significant atelectasis postop day 3 Ambulatory saturations are now 96% on room air This is a dramatic improvement from yesterday He is able to blow 2500 on incentive spirometry up from 1500 yesterday and 700 the day before He utilized his Pap therapy last evening which offered tremendous benefit toward opening the lungs through the night The patient has had no progression of pain, only improvement and he has no fever Hypoxemia secondary to atelectasis, resolving At this point I have no restrictions on this patient being discharged f to home and follow-up if any symptoms return Call for any questions thank you for the opportunity to evaluate this patient
--- NOTE | 2018-05-15 08:07 | PCM.PN.BLA ---
Progress Note breathing much better sats good can go home.
[2018-05-15 08:08] VITALS: BP 131/74; PULSE 66; RESP 16; TEMP 36.9; O2SAT 96
--- NOTE | 2018-05-15 08:41 | NURSING ---
pt. refusing medications- pt states he will take at home./
--- NOTE | 2018-05-15 08:50 | PCM.PROGNOTE ---
Subjective: Chief complaint: Follow-up after consultation for postoperative hypoxia. Patient seen and examined. No acute events overnight. He denied any more shortness of breath. Denied cough or sputum production. His pulse ox has been normal on room air. His other vital signs are stable. - Physical Exam General: Alert, Oriented x3, Cooperative, No apparent distress HEENT: Atraumatic, PERRLA, EOMI, Normocephalic Oral: Moist Mucosa, No Gingival or Mucosal Lesions/ Ulcerations Neck: Supple, No JVD, Negative Carotid Bruits, Trachea Midline, Thyroid Normal Size and Texture Lungs: Clear to auscultation, No rhonchi, No wheeze, No rales, Diminished Cardiovascular: Regular rate, Regular Rhythm, Normal S1, Normal S2, PMI Normal Abdomen: Bowel Sounds Present, Soft, Non Tender, Non-Distended, No Hepato-splenomegaly Extremities: No clubbing, No cyanosis, No edema Skin: No rashes, No breakdown Lymphatic: No Cervical, Supraclavicular, or Inguinal Adenopathy Neurological: Cranial nerves II-XII grossly intact, Neuro grossly intact Psych/Mental Status: Normal Affect, Appropriate, Alert and oriented to time, place, person, mood and affect Vital Signs Temp Pulse Resp BP Pulse Ox 98.4 F 66 16 131/74 H 96 05/15/18 08:08 05/15/18 08:08 05/15/18 08:08 05/15/18 08:08 05/15/18 08:08 Oxygen Flow Rate (L/min) 3 Oxygen Delivery Method Room Air Weight: 175 lb Body Mass Index (BMI) 30.0 Intake and Output for Last 24 Hours 05/13/18 05/14/18 05/15/18 23:59 23:59 23:59 Intake Total 3482 / 3482 1094 / 1094 1000 / 1000 Output Total 1940 / 1940 2155 / 2155 700 / 700 Balance 1542 / 1542 -1061 / -1061 300 / 300 Clinical Impression(s) from Imaging Studies Chest X-Ray 05/14/18 12:20 IMPRESSION: Limited inspiratory effort with increased markings at the lung bases with areas of confluence. This is suggestive of a bibasilar atelectasis. Electronically Signed: Milan Vazquez MD at 13:12 EST Tel [phone], Service support , Medical Necessity - Tobacco Use Smoking Status: Former smoker Tobacco Use: Non-smoker Assessment/Plan This is a 73 years old male patient underwent elective laparoscopic robotic assisted radical prostatectomy with left and right pelvic lymph node dissection for prostate cancer and BPH with obstruction and postoperatively, he developed hypoxia and he was asymptomatic. #1 postoperative asymptomatic hypoxia: Probably due to atelectasis and mild volume overload. He received 1 dose of IV Lasix. Chest x-ray done and reviewed. EKG revealed no acute ischemic changes. Today, he has no more symptoms. Pulse ox is normal on room air. Patient can be discharged home today. #2 status post laparoscopic robotic assisted radical prostatectomy with left and right pelvic lymph node dissection: This was done for prostate cancer and BPH with obstruction. Postoperative day 2. Patient is on Ceron catheter. Urology is managing. #3 hypertension: Blood pressure stable, continue Norvasc and atenolol. #4 hyperlipidemia: Continue statins. #5 benign prostatic hypertrophy: Continue Flomax. #6 DVT prophylaxis: SCDs. This note was generated with [employer] software. It may contain incorrect words, spelling, and punctuation that were not noted in checking the note before signing. Code Visit Inpatient E&M: 93002 Subs Hosp L2
--- NOTE | 2018-05-15 08:53 | PN_ITS ---
Subjective: Chief complaint: Follow-up after consultation for postoperative hypoxia. Patient seen and examined. No acute events overnight. He denied any more shortness of breath. Denied cough or sputum production. His pulse ox has been normal on room air. His other vital signs are stable. - Physical Exam General: Alert, Oriented x3, Cooperative, No apparent distress HEENT: Atraumatic, PERRLA, EOMI, Normocephalic Oral: Moist Mucosa, No Gingival or Mucosal Lesions/ Ulcerations Neck: Supple, No JVD, Negative Carotid Bruits, Trachea Midline, Thyroid Normal Size and Texture Lungs: Clear to auscultation, No rhonchi, No wheeze, No rales, Diminished Cardiovascular: Regular rate, Regular Rhythm, Normal S1, Normal S2, PMI Normal Abdomen: Bowel Sounds Present, Soft, Non Tender, Non-Distended, No Hepato- splenomegaly Extremities: No clubbing, No cyanosis, No edema Skin: No rashes, No breakdown Lymphatic: No Cervical, Supraclavicular, or Inguinal Adenopathy Neurological: Cranial nerves II-XII grossly intact, Neuro grossly intact Psych/Mental Status: Normal Affect, Appropriate, Alert and oriented to time, place, person, mood and affect Vital Signs Temp Pulse Resp BP Pulse Ox 98.4 F 66 16 131/74 H 96 05/15/18 08:08 05/15/18 08:08 05/15/18 08:08 05/15/18 08:08 05/15/18 08:08 Oxygen Flow Rate (L/min) 3 Oxygen Delivery Method Room Air Weight: 175 lb Body Mass Index (BMI) 30.0 Intake and Output for Last 24 Hours 05/13/18 05/14/18 05/15/18 23:59 23:59 23:59 Intake Total 3482 / 3482 1094 / 1094 1000 / 1000 Output Total 1940 / 1940 2155 / 2155 700 / 700 Balance 1542 / 1542 -1061 / -1061 300 / 300 Clinical Impression(s) from Imaging Studies Chest X-Ray 05/14/18 12:20 IMPRESSION: Limited inspiratory effort with increased markings at the lung bases with areas of confluence. This is suggestive of a bibasilar atelectasis. Electronically Signed: Milan Vazquez MD at 13:12 EST Tel [phone], Service support , Medical Necessity - Tobacco Use Smoking Status: Former smoker Tobacco Use: Non-smoker Assessment/Plan This is a 73 years old male patient underwent elective laparoscopic robotic assisted radical prostatectomy with left and right pelvic lymph node dissection for prostate cancer and BPH with obstruction and postoperatively, he developed hypoxia and he was asymptomatic. #1 postoperative asymptomatic hypoxia: Probably due to atelectasis and mild volume overload. He received 1 dose of IV Lasix. Chest x-ray done and reviewed. EKG revealed no acute ischemic changes. Today, he has no more symptoms. Pulse ox is normal on room air. Patient can be discharged home today. #2 status post laparoscopic robotic assisted radical prostatectomy with left and right pelvic lymph node dissection: This was done for prostate cancer and BPH with obstruction. Postoperative day 2. Patient is on Ceron catheter. Urology is managing. #3 hypertension: Blood pressure stable, continue Norvasc and atenolol. #4 hyperlipidemia: Continue statins. #5 benign prostatic hypertrophy: Continue Flomax. #6 DVT prophylaxis: SCDs. This note was generated with [employer] software. It may contain incorrect words, spelling, and punctuation that were not noted in checking the note before signing. Code Visit Inpatient E&M: 44281 Subs Hosp L2
[2018-05-15 09:00] VITALS: O2SAT 93; O2SAT 96
--- NOTE | 2018-05-15 12:49 | NURSING ---
After pt d/c'ed- found large bottle of body wash from home in shower. Called patient and was given permission to throw away.
--- OUTSIDE RECORDS SUMMARY | 2018-06-29 02:06 | XMS RPT_ITS ---
:1945 Author Organization OH[facility] Care Team Providers Name Role Phone VIRGINIA KRAUSE (ARMOND) Referring Unavailable VIRGINIA KRAUSE (BUSINESS CONTINUITY GLOBAL DIRECTOR) Attending Unavailable HARSHIL GOODWIN Referring Unavailable CHAPIN WHITE Referring Unavailable CHAPIN WHITE Referring Unavailable CHAPIN WHITE Attending Unavailable HARSHIL GOODWIN Referring Unavailable HARSHIL GOODWIN Referring Unavailable HARSHIL GOODWIN Referring Unavailable OLDER, VIRGINIA (BUSINESS CONTINUITY GLOBAL DIRECTOR) Referring Unavailable OLDER, VIRGINIA (BUSINESS CONTINUITY GLOBAL DIRECTOR) Attending Unavailable GOODWIN, FAHAD Attending Unavailable RADHA MALCOLM Referring Unavailable Rosetta, Agustín Herrera Admitting Unavailable Ashelfah, Ghasem Attending Unavailable Rosetta, Aldair Referring Unavailable Goodwin, Harshil Primary Care Unavailable Sibilia, Jabari Consulting Unavailable Ashelfah, Ghasem Consulting Unavailable Rosetta, Aldair Consulting Unavailable Rosetta, Aldair Admitting Unavailable Ashelfah, Ghasem Attending Unavailable Rosetta, Aldair Referring Unavailable Goodwin, Harshil Primary Care Unavailable Ashelfah, Ghasem Consulting Unavailable Sibilia, Jabari Consulting Unavailable Rosetta, Aldair Consulting Unavailable Rosetta, Agustín Herrera Attending Unavailable Goodwin, Harshil Primary Care Unavailable Anna Alegre Attending Unavailable Anna Alegre Referring Unavailable Goodwin, Harshil Primary Care Unavailable Rosetta, Agustín Herrera Attending Unavailable Rosetta, Aldair Referring Unavailable Goodwin, Harshil Primary Care Unavailable Heidi, Cooper Attending Unavailable Rosetta, Agustín Herrera Referring Unavailable Rosetta, Agustín Herrera Attending Unavailable Rosetta, Aldair Referring Unavailable Goodwin, Harshil Primary Care Unavailable Rosetta, Agustín Herrera Attending Unavailable Rosetta, Aldair Referring Unavailable Goodwin, Harshil Primary Care Unavailable Rosetta, Aldair Admitting Unavailable Rosetta, Agustín Herrera Attending Unavailable Rosetta, Agustín Herrera Referring Unavailable Goodwin, Harshil Primary Care Unavailable Ashelfah, Ghasem Consulting Unavailable Sibilia, Jabari Consulting Unavailable PROBLEMS PROBLEMS DATE TYPE CONDITION / CODE ATTENDING STATUS SOURCE 06/10/2018 Unknown I10 - Essential Heidi, Cooper Active [facility] (primary) [facility] hypertension / Hospital I10(ICD-10) Repository 04/06/2018 Unknown C61 - Malignant Rosetta, Agustín Active [facility] neoplasm of prostate [facility] / C61(ICD-10) Hospital Repository 03/17/2018 Active Other forms of NA Active [facility] dyspnea / Clinic Main R06.09(ICD-10) [place] Repository 03/17/2018 Active Chest pain, NA Active [facility] unspecified / Clinic Main R07.9(ICD-10) [place] Repository 03/17/2018 Active Shortness of breath NA Active [facility] / R06.02(ICD-10) Clinic Main [place] Repository 07/18/2016 Active Elevated prostate NA Active [facility] specific antigen [facility] Main (PSA) / [place] R97.20(ICD-10) Repository 01/10/2018 Active Mixed hyperlipidemia NA Active [facility] / E78.2(ICD-10) Clinic Main [place] Repository 11/19/2017 Active Unspecified lump in NA Active [facility] the right breast, Clinic Main upper outer quadrant [place] / N63.11(ICD-10) Repository 11/19/2017 Active Localized swelling, NA Active [facility] mass and lump, trunk Clinic Main / R22.2(ICD-10) [place] Repository PROCEDURES PROCEDURES No Procedure Records FoundRESULTS RESULTS 12 LEAD ELECTROCARDIOGRAM Observed: 05/22/2018 Status: F Source: [place] 2:24 PM [facility] Cardiovascular Services [address] [place] [address] 12 Lead EKG 05/14/18 1357 MR#: [id number] Acct: [id number] Name: CHICHO BOOKER Rep #: [id number] : 1945 73 From: Cooper Gordon MD Attending Dr: Rosetta MARIE,Agustín Herrera Status: DIS IN Ordering Dr: Thao Bonilla MD Date: 05/14/18 Location: [facility] Sex: M C Admitted: 05/13/18 Test Reason : SOB Blood Pressure : / mmHG Vent. Rate : 065 BPM Atrial Rate : 065 BPM P-R Int : 166 ms QRS Dur : 102 ms QT Int : 410 ms P-R-T Axes : 039 -13 002 degrees QTc Int : 426 ms Normal sinus rhythm Normal ECG When compared with ECG of 06-JUL-2010 13:02, No significant change was found Confirmed by COOPER GORDON MD ([id number]), art editor STACY FARRELL ([id number]) on 05/22/2018 2:24:38 PM Referred By: Agustín Sargent Confirmed By:COOPER GORDON MD 05/22/18 1424 Date Cooper Gordon MD CC: Thao Bonilla; Agustín Sargent MD; Harshil Goodwin MD Signed CHEST 1 VIEW Observed: 05/14/2018 Status: F Source: [place] (PORTABLE) 12:20 PM [facility] Imaging Services [address] [place] [address] Chest 1 View (Portable) MR#: [id number] Acct: [id number] Name: CHICHO BOOKER Rep #: [id number] : 1945 M 73 From: Milan Vazquez MD PCP: Harshil Goodwin MD Status: ADM IN Study: Chest 1 View (Portable) Date of Exam: 05/14/18 Exam# [id number] Ordering Dr: Thao Bonilla MD STUDY: X-RAY CHEST REASON FOR EXAM: Male, 73 years old. Shortness of breath. TECHNIQUE: Single AP portable view of the chest. COMPARISON: None. FINDINGS: Decreased inspiratory volume. There is evidence of increased linear markings with areas of confluence at both lung bases suggestive of either bilateral basilar atelectasis and/or early infiltrate. There is also evidence of a calcified granulomas. There is blunting of the left costophrenic angle. Normal size heart. Normal mediastinum and alma. Normal visualized pulmonary arteries. There is atherosclerotic calcification of the aortic arch with tortuosity. Normal visualized thoracic spine. Prior fusion of the lower cervical spine. There is no demonstrated abnormality of the visualized soft tissue structures of the upper abdomen. RAD/Chest 1 View (Portable) IMPRESSION: Limited inspiratory effort with increased markings at the lung bases with areas of confluence. This is suggestive of a bibasilar atelectasis. Electronically Signed: Milan Vazquez MD at 13:12 EST Tel [phone], Service support , CC: Thao Bonilla; Harshil Goodwin MD Unemployment Insurance Director: Signed CBC-COMPLETE BLOOD CNT Collected: 05/14/2018 Status: F Source: [place] NO DIFF 5:33 AM [facility] TYPE CODE TESTS RESULT OUT OF RANGE REFERENCE UNITS LAB L100.1000 4.4-11.0 K/mm3 Normal WBC 5.7 LAB L100.1200 4.6-6.2 M/mm3 Low RBC 3.55 LAB L100.1300 13.0-16.5 g/dl Low HGB 11.2 LAB L100.1400 40-54 % Low HCT 33.4 LAB L100.1500 80-94 fL High MCV 94.1 LAB L100.1600 27.0-32.0 pg Normal MCH 31.5 LAB L100.1700 32-36 g/gl Normal MCHC 33.5 LAB L100.1810 11.6-14.6 % Normal RDW CV 12.6 LAB L100.1820 35.1-43.9 fl Normal RDW SD 41.6 LAB L100.1900 150-450 K/mm3 Normal PLT 169 LAB L100.2000 6.2-12.0 fl Normal MPV 10.2 Performed By: #### L100.0500 #### [facility] [address] [place], [address] CBC-COMPLETE BLOOD CNT Collected: 05/13/2018 Status: F Source: [place] NO DIFF 1:10 PM [facility] Order Comment: Comments: To be done in PACU TYPE CODE TESTS RESULT OUT OF RANGE REFERENCE UNITS LAB L100.1000 4.4-11.0 K/mm3 High WBC 12.5 LAB L100.1200 4.6-6.2 M/mm3 Low RBC 4.32 LAB L100.1300 13.0-16.5 g/dl Normal HGB 13.3 LAB L100.1400 40-54 % Normal HCT 40.2 LAB L100.1500 80-94 fL Normal MCV 93.1 LAB L100.1600 27.0-32.0 pg Normal MCH 30.8 LAB L100.1700 32-36 g/gl Normal MCHC 33.1 LAB L100.1810 11.6-14.6 % Normal RDW CV 12.7 LAB L100.1820 35.1-43.9 fl Normal RDW SD 43.7 LAB L100.1900 150-450 K/mm3 Normal PLT 204 LAB L100.2000 6.2-12.0 fl Normal MPV 10.0 Performed By: #### L100.0500 #### [facility] [address] [place], [address] BASIC METABOLIC Collected: 05/13/2018 Status: F Source: [place] PROFILE (BMP) 1:10 PM [facility] Order Comment: Comments: To be done in PACU TYPE CODE TESTS RESULT OUT OF RANGE REFERENCE UNITS LAB L501.0100 74-106 mg/dL High GLU 119 Result Comment: Fasting Glucose result from 100 to 125 mg/dL suggests IMPAIRED HOMEOSTASIS per A.D.A. criteria. Please note revised GLUCOSE reference range effective 2017. LAB L501.1000 7-18 mg/dL High BUN 20 LAB L501.1100 0.70-1.30 mg/dL Normal CREAT,SERUM 0.99 Result Comment: The validity of the calculated GFR AND GFRAA in patients over 70 years has not been determined. Clinical correlation is essential. LAB L501.1110 >60 mL/min Normal EST GFR 79 Result Comment: Non- GFR Calc LAB L501.1115 >60 mL/min Normal EST GFR - AA 96 Result Comment: GFR Calc LAB L501.1255 ml/min Normal Estimated CRCL 55.08 LAB L501.1300 10-20 RATIO High BUN/CRE 20.2 LAB L501.2200 8.5-10 mg/dL Normal .1 CA 8.6 LAB L501.5300 136-14 mmol/L Normal 5 NA 140 LAB L501.5600 3.5-5. mmol/L Normal 1 K 4.3 LAB L501.5900 98-107 mmol/L High CL 108 LAB L501.6100 21.0-3 mmol/L Normal 2.0 CO2 23.0 LAB L501.6200 5-15 Normal GAP 9 Performed By: #### L500.2500 #### [facility] [address] [place], [address] OPERATIVE REPORT Observed: 05/13/2018 Status: F Source: [place] 12:37 PM [facility] Medical Records Department [address] [place] [address] Operative Report 05/13/18 1225 MR#: [id number] Acct: [id number] Name: CHICHO BOOKER Rep #: [id number] : 1945 73 From: Agustín Sargent MD PCP: Harshil Goodwin MD Status: ADM IN Y Location: [place] [address] Report of Operation Date of Procedure: 05/13/18 Pre-Operative Diagnosis: Prostate cancer, BPH with obstruction urgency frequency Post-Operative Diagnosis: Same Surgery/Procedure Performed:: Laparoscopic robotic assisted radical prostatectomy with bilateral nerve sparing, left and right pelvic lymph node dissection, EMG monitoring of pelvic nerves and sphincter, suture suspension of the urethra Description of Surgical Findings:: 73-year-old male with a history of prostate cancer was counseled regarding the options of treatment we talked about doing radiation, surgery, observation, we talked about the side effects of radiation including radiation cystitis radiation proctitis fistula formation radiation injury and burn, we talked about the side effects of surgery including erectile dysfunction, impotence, lack of bladder control, leakage, risk with anesthesia risk of surgery, we talked about the risk of active surveillance including development of worse cancer non-curative cancer. After discussing the options with the patient he wants to proceed with radical prostatectomy when I do bilateral nerve sparing today. 73-year-old male taken back to the operating room after smooth induction of anesthesia he was placed supine on the table we then placed in the dorsolithotomy position for a robotic approach to the pelvis, the abdomen shaved and prepped and draped in usual sterile fashion, I advanced the Veress needle into the abdomen and created the peritoneal cavity with CO2 gas. We then placed our camera trocar right and left trocar second statistical assistant trocar we placed our air seal port, we placed a an statistical assistant suction trocar. Once I got into the abdomen dissected some of the adhesions of the colon against the lateral wall on the right side and some of the left side once this was released then I went posterior to the bladder identified the right vas deferens for the entire case we only used bipolar no electrocautery was used no monopolar just bipolar for caloric control and small vessels. I dissected out the right vas deferens followed down to the pelvis dissected out the right vas deferens and right seminal vesicle, I then dissected out the left vas deferens left seminal vesicle, I then incised the do not be his fascia and dissected the fat plane below the prostate and the rectum, we then pulled out of the pelvis I opened up the space of Retzius in the right side of the pelvis dropped the bladder open up the space of Retzius the left side of the bladder transected through the attachments of the medial and medial and middle umbilical ligaments transected through this electrocautery using bipolar, bladder was then placed on traction with the fourth arm, we then cleared out the space of Retzius went to the pelvic lymph nodes on the right side identified the right external obturator artery and vein dissected the lymph node tissue proximal to this up to the noted Jber and then off the lateral wall I dissected the lymph node tissue and then went down to the obturator nerve identified the obturator nerve and I dissected the tissue off the rod tape operator nerve and then put clips as I was dissecting this tissue off in the right side made sure to obtain good hemostasis and after dissecting the lymph node tissue in the right side the specimens were handed off to the nurse for permanent. The tissue looked benign in nature on gross inspection. We then went to the left side and identified the left iliac artery and iliac vein and the obturator space was then dissected out the lateral pelvic sidewall was cleaned off the noted Jber was taken to use clips as well as taking this and then came down to the obturator nerve on the left side. After clipping all the tissue then I used a little bipolar to control bleeding the rod tape operator nerve was not injured during the dissection and the tissue was sent off as a permanent section again this tissue appeared benign. I then cleaned the fat off the prostate this was sent off as fat fat over prostate as a specimen we then incised the lateral pelvic sidewall the fascia and dissected the levator muscles off the prostate all the way to the apex on the right side and then did this on the left side as well incised the endopelvic fascia and dissected the levator muscles off the prostate off the left side all the way up to the apex we then incised the prostate pubic O ligaments on both the left and right side transected to this and then I used a dorsal vein stitch and stitch the dorsal vein complex with a [id number] stitch using 0 Vicryl we then came back to the junction between the bladder and the prostate using bipolar I dissected between the bladder and prostate down to the catheter we then deliver the catheter put in upper traction and then dissected between the bladder and prostate posteriorly until I reached the vas deferens and seminal vesicles then we went to the left side of the prostate inspected the left side inspect the right side we passed the EMG electrodes into the abdomen passed the electrodes through the fat to hold him to the lateral sidewalls and then placed electrodes into the levator muscles in the right side and the left side of the pelvic lateral romero. We then checked for the placement of the the nerves we stimulated along the pelvic lateral wall and identified the nerves all the way up along the course of the prostate on the right side and all the way along the course of proximal in the left side these nerves were identified with the action potential seen on the screen with the EMG monitoring also the tech to verify the nerves were responding after both the right and left nerves were identified I then went to the prostate incised the capsule over the prostate swept the nerves off the prostate on the right side and then started retrograde retrograde dissection on the right side towards the pedicle once I have the nerves off the prostate in the right side then I could identify the pedicle clearly I clipped the pedicle with 2 clips and then transected to the pedicle and they could sweep the nerves off the prostate on the right side all the way to the apex these came off very nicely with no transection or injury to the nerves and no violation of the prostate capsule then went to the left side and identified the nerve bundle on the left side we used the EMG monitoring to relate these nerves and identified the action potential location of these nerves I incised the capsule the prostate swept the capsule off the prostate and then identified the nerve bundles running underneath the prostate capsule and gently swept this off the prostate and then worked all the way my way back in the left side and then came to the pedicle in the left side with clips and transected to the clips with with sharp scissors after transecting the vascular pedicles I then gently swept the nerve bundles off the left posterior through the prostate all the way to the apex after it been done dissecting the prostate nerve bundles off the prostate in the left and right side we then checked the EMG monitoring again right side was still firing and accurate action potential along the entire course of the right side left side was so far with good action potential the course of the left side I then dissected through the dorsal vein complex complex and transected through here circumferentially dissected around the urethra place extra stitches in the dorsal vein complex to control bleeding then transected through the prostate and urethra. The prostate was then removed the put in the Endo Catch bag inspected the urethra there was no prostate tissue and the urethra nice dissection on both sides with a good control of both the left and right nerve bundles and then we checked the EMG monitoring of the sphincter will put when the electrodes on the sphincter itself and stimulated I got a good response in a good action potential from the sphincter and a good coaptation from the sphincter itself. We then came back to the bladder neck for the suture suspension we first closed the bladder neck to make it nice and small and then we suspended the urethra with stitches and we went from the urethra to the bladder neck to complete the series suture suspension of the urethra to the bladder neck this was done over a catheter after completing this then catheter was put into the bladder and placement of the catheter 1 of the stitches had gone to the Jones catheter at the rate we at the pull the catheter up and then pulled the stitch off the catheter and then we put a new catheter into the bladder is a 18 [place] tip catheter we completed the anastomosis we flushed the bladder there was no leakage from what we could see we then left the drain and below the anastomosis we undocked the robot we extracted the prostate through the supraumbilical port we closed the port with interrupted 0 Vicryl stitches through the fascia and then we also closed the variceal port with a Juan Carlos Almendaerz stitch all the needles were accounted for the sponges the dressings were accounted for minimal bleeding during the case patient's anesthetic is currently being reversed with minimal blood loss and a good anastomosis good sparing of both nerve bundles in the right left side and good preservation of the nerves with action potential that was positive after the dissection. Patient currently being extubated from anesthesia and will go to talk to the family. Type of Anesthesia:: General Drains: jones, Drain Estimated Blood Loss (mL): 100cc - Admit VTE Documentation VTE Present on Admission: No VTE Mechan Device Prophylaxis: SCD's 05/13/18 5627 <Electronically signed by Agustín Sargent MD> Date Agustín Sargent MD CC: Agustín Sargent MD; Harshil Goodwin MD Signed DISCHARGE INSTRUCTION Observed: 05/13/2018 Status: F Source: [place] 8:36 AM [facility] Medical Records Department [address] [place] [address] Instructions for Home/Discharge Instructions 05/13/18 0834 MR#: [id number] Acct: [id number] Name: CHICHO BOOKER Rep #: [id number] : 1945 73 From: Agustín Sargent MD PCP: Harshil Goodwin MD Status: ADM IN Discharge Diet: Light diet - advance as tolerated, Soft diet Discharge Activity: May Not Drive, May not drive while taking narcotic pain medications., May Shower Return to work on:: 06/24/18 May shower in (days): 1 May resume sexual activity in: 6 weeks Call your doctor if your incision/area has: Continuous Slow Oozing, Sudden Increased Bleeding, Increased Pain/ Swelling, Increased Redness, Foul Smelling Discharge, Swelling at the incision site Call your doctor if you observe: Fever of 101 or Higher Suture Line Care: Avoid Pulling/Pushing, Avoid Pinching/Bending Catheter: Jones to leg bag, Jones to large bag Drain: [place] Instructions: Discharge Instructions for Radical Prostatectomy Allergies/Adverse Reactions: Allergies meperidine HCl [From Demerol] Adverse Reaction (Verified 05/05/18 14:35) diaphoretic,palpatations Medications to take at Discharge Amlodipine [Norvasc] 5 mg PO DAILY 05/05/18 Atenolol [Tenormin (Beta Hunter)] 50 mg PO QHS 05/05/18 Atorvastatin Calcium [Lipitor] 40 mg PO QHS 05/05/18 Multivitamin [Multiple Vitamins] 1 each PO DAILY 05/05/18 Tamsulosin HCl [Flomax] 0.4 mg PO QHS 05/05/18 Acetaminophen [Tylenol Extra Strength] 500 mg PO Q4H PRN PRN #20 tablet 05/13/18 Ciprofloxacin [Cipro] 500 mg PO BID #14 tablet 05/13/18 Docusate Sodium [Colace] 100 mg PO BID #20 capsule 05/13/18 Ibuprofen [Motrin] 600 mg PO Q6H PRN PRN #20 tablet 05/13/18 The following prescriptions were given: Acetaminophen [Tylenol Extra Strength] 500 mg PO Q4H PRN PRN #20 tablet PRN Reason: Pain Ibuprofen [Motrin] 600 mg PO Q6H PRN PRN #20 tablet PRN Reason: Pain Ciprofloxacin [Cipro] 500 mg PO BID #14 tablet Docusate Sodium [Colace] 100 mg PO BID #20 capsule Orders to be completed after discharge: Type AND Screen Time Frame: 05/13/18, Location: None Selected Primary Care Physician: Harshil Goodwin MD [Primary Care Provider] - Test Results: Test results from this visit will be discussed in further detail at your follow-up appointment, if applicable. Please Follow Up With: Agustín Sargent MD When: Next morning, call the office. Proposed Discharge Date: 05/14/18 05/13/18 0836 <Electronically signed by Agustín Sargent MD> Date Agustín Sargent MD CC: Harshil Goodwin MD PROSTATE RADICAL Observed: 05/13/2018 Status: F Source: [place] RESECTION 12:00 AM [facility] Patient: CHICHO BOOKER : 1945 (73/M) Acct Num: [id number] Phys: Agustín Sargent MD Unit Num: [id number] Loc: MS2 [id number] Specimen: [id number] Received: 05/13/181513 Spec Type: PROSTATE TISSUES 1 TISSUES: A. Lymph node of pelvis, NOS B. Lymph node of pelvis, NOS C. Adipose tissue D. Prostate, NOS COMMENT The tumor in the right lobe involves the middle portion of the prostate, and present in slide # 12 and 14 and measures 0.6 x 0.3 cm (measured microscopically ). The tumor in the left lobe involves apical, mid and basal portion of the prostate, and present in slide # 7, 8, 11, 13 and 20 and measures 2.5 x 1 cm ( measured microscopically). Please make reference to previous specimen ([id number]) left prostate, mid, core biopsy and left prostate, base, core biopsy with diagnosis of adenocarcinoma. Case has been reviewed in consultation with Dr. Almanzar who concurs with the above diagnosis. IDC:AM GROSS DESCRIPTION A - Received in fixative is one container labeled with the patient's name and designated right lymph node pelvic. The specimen consists of a piece of yellow adipose tissue measuring 2.5 x 1 x 0.5 cm. The specimen is bisected and submitted entirely in one cassette. It will be submitted after overnight fixation. / : 05/13/18 B - Received in fixative is one container labeled with the patient's name and designated left lymph node pelvic. The specimen consists of a piece of yellow adipose tissue measuring 2 x 2 x 0.7 cm. The specimen is bisected and submitted entirely in one cassette. Sections will be submitted after overnight fixation. / : 05/13/18 C - Received in fixative is one container labeled with the patient's name and designated fat over prostate. The specimen consists of two variable sized pieces of yellow adipose tissue that in aggregate measure 4 x 3 x 0.5 cm. No mass lesion is identified. The entire specimen is submitted in two cassettes. Sections will be submitted after overnight fixation. / : 05/13/18 D - Received in fixative is one container labeled with the patient's name and designated prostate. The specimen consists of a radical prostatectomy specimen consisting of prostate, bilateral seminal vesicles and vas deferens weighing 52 gm. The prostate measures 3.5 cm from apex to apex, 4 cm transversely and 4 cm anterior-posteriorly. The right seminal vesicle measures 2.5 x 1 x 0.5 cm and right vas deferens measures 2 cm in length and 0.5 cm in diameter. The left seminal vesicle measures 2 x 1 x 0.4 cm and left vas deferens measures 2.5 cm in length and 0.5 cm in diameter. The prostate is inked as follows: anterior surface - yellow, posterior surface - black, right lateral surface - blue, left lateral surface - green. The seminal vesicles and vas deferens are inked as follows: posterior surface right and left seminal vesicles and right and left vas deferens - black, anterior surface right seminal vesicle and vas deferens - blue, anterior surface left seminal vesicle and vas deferens - green. Sections do not reveal any obvious mass lesion. Shader And Toner sections are submitted in 20 cassettes as follows: 1 - right seminal vesicle and vas deferens, 2 - left seminal vesicle and vas deferens, 3 - apical margin, enface, 4 - bladder base margin, enface, 5- 9 - apical portion of prostate, 10-15 - middle portion prostate, 1620 - basal portion prostate. / SJ: 05/14/18 TC:0 CPT: 78469, 79540 x2, 52444 HEADER OPERATION: Lap robotic prostatectomy, nerve monitoring PRE-OP DIAGNOSIS: Malignant neoplasm of prostate TISSUE SUBMITTED: A - Right lymph node, pelvic, B - Left lymph node, pelvic, C - Fat over prostate, D - Prostate MICROSCOPIC DESCRIPTION Slides are reviewed. MICROSCOPIC DIAGNOSIS A. Right pelvic lymph node, biopsy: One lymph node, negative for metastatic carcinoma. B. Left pelvic lymph node, biopsy: One lymph node, negative for metastatic carcinoma. C. Fat over prostate, biopsy: Mature adipose tissue, negative for carcinoma. D. Prostate, radical prostatectomy: Prostatic adenocarcinoma. See cancer summary below. SJ: 05/15/18 PROSTATE CANCER (RADICAL) SUMMARY: Procedure - radical prostatectomy Prostate size - 3.5 cm from apex to base, 4 cm transversely and 4 cm anterior posteriorly Prostate weight - 52 gm Lymph node sampling - pelvic lymph node dissection Histologic type - adenocarcinoma (acinar, not otherwise specified) Histologic grade ([place] Pattern): Primary pattern - 3 Secondary pattern - 4 Tertiary pattern - not identified Total [place] score - 7 Tumor Quantitation: Proportion (%) of prostate involved by tumor - ~10% Extraprostatic extension - not identified Seminal vesicle invasion - not identified Margins - margins are free of tumor. Treatment effect on carcinoma - no known presurgical therapy Lymph-Vascular invasion - not identified Perineural invasion - present, focal Regional lymph nodes: Number examined - 2 Number involved - 0 Distant metastasis - not applicable Additional pathologic findings - chronic inflammation. - Focal high-grade prostatic intraepithelial neoplasia (HGPIN). Ancillary studies - PATHOLOGIC STAGE: pT2c pN0 Mx The above summary is in compliance with [employer] [place] (CAP) Cancer Protocols Checklist and [place] Joint Committee on Cancer (AJCC), Staging Manual, 8th Ed. PSA RESULTS 1 Date Time Test Result Flag (u) Normal Range 02/17/18 1030 PSA, DIAGNOSTIC 6.44 H 0.0-4.0 ng/mL 1 This test was performed using the TPSA assay method for the [employer] chemistry system. Values obtained with different assay methods cannot be used interchangably. When changing PSA assays in the course of monitoring a patient, additional sequential testing should be carried out to confirm baseline values. Signed Miko Yoonin 05/15/18 <signature on file> Performed By: #### PPROST #### [facility] [address] [address] [place], [place], [address] CBC-COMPLETE BLOOD CNT Collected: 05/05/2018 Status: F Source: [place] NO DIFF 2:30 PM [facility] [place] CODE TESTS RESULT OUT OF RANGE REFERENCE UNITS LAB L100.1000 4.4-11.0 K/mm3 Normal WBC 4.6 LAB L100.1200 4.6-6.2 M/mm3 Low RBC 4.58 LAB L100.1300 13.0-16.5 g/dl Normal HGB 14.2 LAB L100.1400 40-54 % Normal HCT 42.4 LAB L100.1500 80-94 fL Normal MCV 92.6 LAB L100.1600 27.0-32.0 pg Normal MCH 31.0 LAB L100.1700 32-36 g/gl Normal MCHC 33.5 LAB L100.1810 11.6-14.6 % Normal RDW CV 13.0 LAB L100.1820 35.1-43.9 fl Normal RDW SD 43.5 LAB L100.1900 150-450 K/mm3 Normal PLT 185 LAB L100.2000 6.2-12.0 fl Normal MPV 10.2 Performed By: #### L100.0500 #### [facility] [address] [place], [address] BASIC METABOLIC Collected: 05/05/2018 Status: F Source: [place] PROFILE (BMP) 2:30 PM [facility] [place] TYPE CODE TESTS RESULT OUT OF RANGE REFERENCE UNITS LAB L501.0100 74-106 mg/dL Normal GLU 99 Result Comment: Please note revised GLUCOSE reference range effective 2017. LAB L501.1000 7-18 mg/dL Normal BUN 17 LAB L501.1100 0.70-1.30 mg/dL High CREAT,SERUM 1.41 Result Comment: The validity of the calculated GFR AND GFRAA in patients over 70 years has not been determined. Clinical correlation is essential. LAB L501.1110 >60 mL/min Low EST GFR 53 Result Comment: Non- GFR Calc LAB L501.1115 >60 mL/min Normal EST GFR - AA 64 Result Comment: GFR Calc LAB L501.1255 ml/min Normal Estimated CRCL 38.67 LAB L501.1300 10-20 RATIO Normal BUN/CRE 12.1 LAB L501.2200 8.5-10 mg/dL Normal .1 CA 9.5 LAB L501.5300 136-14 mmol/L Normal 5 NA 144 LAB L501.5600 3.5-5. mmol/L Normal 1 K 3.9 LAB L501.5900 98-107 mmol/L Normal CL 107 LAB L501.6100 21.0-3 mmol/L Normal 2.0 CO2 29.0 LAB L501.6200 5-15 Normal GAP 8 Performed By: #### L500.2500 #### [facility] [address] [place], [address] CNPN Observed: 04/22/2018 Status: COMPLETED Source: [place] 12:00 AM [facility] REPOSITORY Telephone (CAWSTR) CHICHO BOOKER ([id number]) 1945 M Date Time Provider Department 04/22/18 CHAPIN WHITETR During your visit today, we recorded the following information about you: Chapin White MD 04/22/2018 9:41 AM Signed Chicho Booker is clinically stable and optimized for surgery as planned and medications have been adjusted. Risk of perioperative cardiac conditions is low to intermediate. No further testing is recommended. No guarantees are made. Please. Send this note to Dr. Sargent's office along with recent office note and stress test report. MD Wei Camops RN 04/22/2018 9:49 AM Signed Note below and surgery clearance form faxed to Dr. Sargent's office at [phone] with fax confirmation Wei Taylor RN 04/27/2018 4:[address] Sargent's office called, state they did not get all the documents, refaxed office note and stress test report to [phone] with fax confirmation Wei Taylor RN Allergies As of Date: 04/22/2018 Noted Allergy Reaction DEMEROL (MEPERIDINE) 06/27/2008 Comments: Heart problem Date Reviewed: 03/17/2018 Reviewed by: Daya Lazaro MA - Fully Assessed Reason for Visit: Cardiac Clearance [4105] Prescriptions as of 04/22/2018 Sig: ATENOLOL 50 MG TABLET Take 1 tablet by mouth once d* AMLODIPINE 5 MG TABLET TAKE 1 TABLET EVERY DAY ATORVASTATIN 40 MG TABLET Take 1 tablet by mouth once d* TAMSULOSIN 0.4 MG CAPSULE Take 0.4 mg by mouth. ASPIRIN 81 MG TABLET,DELAYED * Take 1 tablet by mouth once d* * CENTRUM SILVER TABLET Take one(1) tablet daily. More... Problem List As Of Date 04/22/2018 Noted Resolved Essential hypertension [I10] INVALID FOR* Hyperlipidemia [E78.5] INVALID FOR* Impotence of Organic Origin [N52.9] INVALID FOR* CHRONIC RHINITIS [J31.0] INVALID FOR* More... Cervical radiculopathy [M54.12] INVALID FOR*03/03/2012 Unspecified constipation [K59.00] INVALID FOR*01/22/2017 Anxiety state [F41.1] INVALID FOR*01/22/2017 Depression with anxiety [F41.8] INVALID FOR* Memory disturbance [R41.3] INVALID FOR* Encounter for screening colonoscopy [Z12.11] INVALID FOR*08/31/2015 CARLOTTA on CPAP [G47.33, Z99.89] INVALID FOR* Hypoxemia [R09.02] INVALID FOR* More... Elevated prostate specific antigen (PSA) [R97.2*INVALID FOR* Adenomatous colon polyp [D12.6] INVALID FOR* Encounter Status:Closed by WEI TAYLOR RN on 04/22/18 PROGRESS Observed: 04/07/2018 Status: COMPLETED Source: [place] 10:19 AM [facility] REPOSITORY HNO ID: [id number] Author: Jani Lazaro (Rcep) Service: (none) Author Type: Mutuel Cashier Type: Progress Notes Filed: 04/07/2018 10:20 AM Note Text: Preliminary report complete; results under cardiac tab. DEBORAH Campos CNNURSE Observed: 04/07/2018 Status: COMPLETED Source: [place] 10:00 AM [facility] REPOSITORY Nurse Visit (CAWSTR) CHICHO BOOKER ([id number]) 1945 M Date Time Provider Department 04/07/18 10:00 AM [facility] During your visit today, we recorded the following information about you: DEBORAH Campos 04/07/2018 10:20 AM Signed Preliminary report complete; results under cardiac tab. DEBORAH Campos Referring Provider: CHAPIN WHITE [[id number]] Allergies As of Date: 04/07/2018 Noted Allergy Reaction DEMEROL (MEPERIDINE) 06/27/2008 Comments: Heart problem Date Reviewed: 03/17/2018 Reviewed by: Daya Lazaro MA - Fully Assessed Primary Visit Diagnosis:Chest pain, unspecified type [R07.9] Other Visit Diagnosis:Other fatigue [R53.83] Prescriptions as of 04/07/2018 Sig: ATENOLOL 50 MG TABLET Take 1 tablet by mouth once d* AMLODIPINE 5 MG TABLET TAKE 1 TABLET EVERY DAY ATORVASTATIN 40 MG TABLET Take 1 tablet by mouth once d* TAMSULOSIN 0.4 MG CAPSULE Take 0.4 mg by mouth. ASPIRIN 81 MG TABLET,DELAYED * Take 1 tablet by mouth once d* * CENTRUM SILVER TABLET Take one(1) tablet daily. More... Problem List As Of Date 04/07/2018 Noted Resolved Essential hypertension [I10] INVALID FOR* Hyperlipidemia [E78.5] INVALID FOR* Impotence of Organic Origin [N52.9] INVALID FOR* CHRONIC RHINITIS [J31.0] INVALID FOR* More... Cervical radiculopathy [M54.12] INVALID FOR*03/03/2012 Unspecified constipation [K59.00] INVALID FOR*01/22/2017 Anxiety state [F41.1] INVALID FOR*01/22/2017 Depression with anxiety [F41.8] INVALID FOR* Memory disturbance [R41.3] INVALID FOR* Encounter for screening colonoscopy [Z12.11] INVALID FOR*08/31/2015 CARLOTTA on CPAP [G47.33, Z99.89] INVALID FOR* Hypoxemia [R09.02] INVALID FOR* More... Elevated prostate specific antigen (PSA) [R97.2*INVALID FOR* Adenomatous colon polyp [D12.6] INVALID FOR* Encounter Status:Closed by Jani FRIEND on 04/07/18 CREATININE FINGERSTICK Collected: 04/06/2018 Status: F Source: [place] 1:20 PM [facility] [place] CODE TESTS RESULT OUT OF RANGE REFERENCE UNITS LAB L9100.0210 0.70-1.30 mg/dL Normal CREATININE WB 0.8 Performed By: #### L9100.0200 #### [facility] Point of Care [address] [address] ABDOMEN/PELVIS WITH Observed: 04/06/2018 Status: F Source: [place] CONTRAST 1:13 PM [facility] [place] [facility] Imaging Services [address] [place] [address] Abdomen/Pelvis WITH Contrast MR#: [id number] Acct: [id number] Name: MELISSACHICHO E Rep #: [id number] : 1945 M 73 From: Chris Alvarenga MD PCP: Harshil Goodwin MD Status: REG CLI Study: Abdomen/Pelvis WITH Contrast Date of Exam: 04/06/18 Exam# [id number] Ordering Dr: Agustín Sargent MD STUDY: CT ABDOMEN AND PELVIS WITH CONTRAST REASON FOR EXAM: Male, 73 years old. New diagnosis of prostate cancer RADIATION DOSAGE (If Supplied By Facility): CTDIvol = ( 13.23 ) mGy, DLP = ( 715.02 ) mGycm TECHNIQUE: Transaxial images were obtained from the dome of the diaphragm to the symphysis pubis without oral contrast. 100 ml of Isovue 300 contrast was administered. Sagittal and coronal images were reconstructed. Individualized dose optimization techniques were used for this CT. COMPARISON: 2014 FINDINGS: There are chronic interstitial fibrotic changes of the lung bases. The visualized portions of the heart are within normal limits. There is decreased attenuation of the liver consistent with steatosis. There are multiple gallstones. Normal spleen. Normal pancreas. Normal bilateral adrenal glands. Normal right kidney. Normal left kidney. Normal visualized stomach. Normal small intestine. Normal colon. There is non-visualization of the appendix. Normal abdominal aorta. Normal inferior vena cava. Normal retroperitoneum. Normal urinary bladder. There is enlargement of the prostate gland. Normal abdominal wall. Normal osseous structures. CT/Abdomen/Pelvis WITH Contrast IMPRESSION: Fatty liver, no discrete lesion Cholelithiasis Prostate enlargement with calcifications, no demonstrated mass Electronically Signed: Arnulfo Alvarenga MD at 13:17 EST , Service support , CC: Agustín Sargent MD; Harshil Goodwin MD Unemployment Insurance Director: Signed BONE SCAN WHOLE Observed: 03/31/2018 Status: F Source: [place] BODY 8:20 AM [facility] [place] [facility] Imaging Services [facility] [place] [place] [address] Bone Scan Whole Body MR#: [id number] Acct: [id number] Name: CHICHO BOOKER Rep #: [id number] : 1945 M 73 From: Prem Cannon DO PCP: Harshil Goodwin MD Status: REG CLI Study: Bone Scan Whole Body Date of Exam: 03/31/18 Exam# [id number] Ordering Dr: Agustín Sargent MD CLINICAL: 73-year-old male with reported history of primary prostate carcinoma. WHOLE BODY 99m Tc MDP RADIONUCLIDE BONE SCINTIGRAPHY COMPARISON: None available FINDINGS: Following the intravenous administration of 24.6 mCi of 99m Tc MDP, whole body bone images reveal: 1. Increased radiopharmaceutical concentration is identified in the upper-mid cervical spine posteriorly on the left and right, the acromioclavicular and sternoclavicular compartments of both shoulders, elbows bilaterally, left wrist, fifth lumbar vertebra posteriorly on the left, right and left knees, the left midfoot. 2. The remaining skeletal structures are scintigraphically unremarkable with normal-appearing renal images and urinary bladder activity identified. NM/Bone Scan Whole Body IMPRESSION: 1. The increase in radiopharmaceutical concentration identified in the cervical and lumbar spine, bilateral shoulder and elbow articulations, left wrist, knees bilaterally and left midfoot is most consistent with degenerative arthritis. 2. There is no definitive typical scintigraphic evidence of skeletal metastatic disease on the current examination. Electronically Signed: Prem Cannon DO at 23:57 EDT Tel , Service support , CC: Agustín Sargent MD; Harshil Goodwin MD Unemployment Insurance Director: Signed CNOV Observed: 03/17/2018 Status: COMPLETED Source: [place] 12:45 PM [facility] REPOSITORY Office Visit (CAWSTR) CHICHO BOOKER ([id number]) 1945 M Date Time Provider Department 03/17/18 12:45 PM CHAPIN WHITEWSTR During your visit today, we recorded the following information about you: Pulse Blood pressure 98/minute 154/82 Chapin White MD 03/17/2018 4:43 PM Signed PERTINENT CARDIAC HISTORY Aortic stenosis - mild HTN HL CARLOTTA - ASV Carotid disease - mild ADHERENCE TO GUIDELINES JOHNNY-I or ARB for HF with prior LVEF<40 (NQF 0081) - N/A ASA or Plavix for ASHD (NQF 0067) - met Beta hunter for ASHD with prior ME or prior LVEF<40 (NQF 0070) - N/A Beta hunter for HF with prior LVEF<40 (NQF 0083) - N/A JOHNNY-I or ARB for ASHD with DM or prior LVEF<40 (NQF 0066) - N/A Statin therapy for ASHD or FHL or DM - met BMI documented and plan if >25 (NQF 0421) - lifestyle recommendation form Tobacco use screening and referral (NQF 0028) - lifestyle recommendation form Recommendation for whole food, plant based diet - lifestyle recommendation form CLINICAL IMPRESSION/PLAN: Chicho Booker has stable exercise tolerance. There is no evidence of progression of his aortic valve disease. He has developed a dynamic gradient which may increase his risk of hypotension perioperatively. It will be several weeks before any surgery is performed. I recommend that he begin atenolol 50 milligrams daily. I've asked him to contact me with report of vital signs next week and we can make further adjustments as needed. I recommend that he have a non-imaging stress test on medication prior to surgery. He has not been exercising as much and I cannot ascertain his exercise tolerance. He will be seen in 6 months or as needed. Written and verbal health teaching given to patient, patient verbalizes understanding and agrees with treatment plan. DIAGNOSIS FOR VISIT: Aortic stenosis Hypertension HISTORY OF PRESENT ILLNESS Chicho Booker returns for follow-up of his valvular heart disease and hypertension. He reports some rare episodes of chest tightness lasting seconds. These episodes are nonexertional. There is no radiation and he has taken no nitroglycerin. He reports stable exercise tolerance. He has not been doing much physical activity because of diagnosis of prostate cancer. He will likely be undergoing some type of prostate procedure. He's had no orthopnea or edema. He denies syncope, TIAs, amaurosis and claudication. He's had minimal palpitations. ALLERGIES: ALLERGIES Allergen Reactions - Demerol [Meperidine] Heart problem CURRENT OUTPATIENT MEDICATIONS: amLODIPine (NORVASC) 5 mg tablet TAKE 1 TABLET EVERY DAY atorvastatin (LIPITOR) 40 mg tablet Take 1 tablet by mouth once daily. tamsulosin ER (FLOMAX) 0.4 mg cp24 Take 0.4 mg by mouth. aspirin, enteric coated (ECOTRIN LOW STRENGTH) 81 mg EC tablet Take 1 tablet by mouth once daily. multivitamins w-minerals/lut(CENTRUM SILVER TAB) Take one(1) tablet daily. PHYSICAL EXAMINATION: VITAL SIGNS: BP 154/82 Pulse 98 Chest: Clear to auscultation. Trachea is midline. Air entry is equal. Cardiac: Regular rhythm. S1 and S2 are normal. PMI is nondisplaced. There is a 2/6 early systolic murmur of aortic stenosis. Carotids are brisk with soft bilateral bruits. JVP is less than 10 cm. Abdomen: Soft and nontender. There are no pulsatile masses or bruits. No liver enlargement. Bowel sounds are active. Extremities: No edema. Pulses are intact and symmetrical. EKG shows sinus rhythm. There is left axis deviation. No significant change is seen. Recent labs were reviewed. Renal function is normal. LDL was 109. Echocardiogram was performed today. This shows stable left ventricular function. Valvular gradients are stable. There is now a dynamic LVOT gradient Electronically Signed: Chapin White MD March 17, 2018 11:48 AM CC: MD Chapin Bullock MD 03/17/2018 11:48 AM Signed LIFESTYLE CHANGE A healthy lifestyle is the most important component of your overall treatment plan. 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 EAT A WHOLE FOOD, PLANT BASED DIET The nutrition your body gets is more important than the medicine you take. What matters most is the overall way you eat. We encourage you to minimize the use of animal products (which include dairy and all meats except fatty fish) and use whole, unprocessed plant foods to provide your protein, vitamins and other nutrients. We have a lot of information to share with you on this topic. This is not a diet. It is a way of life that you will keep with you. EXERCISE REGULARLY It is not important to spend hours in the gym, lifting weights and perspiring heavily. A total of 2-3 hours per week of aerobic (causing you to be moderately short of breath) exercise is sufficient to improve your health. Talk to us before you begin a new exercise program, if you have heart disease or experience shortness of breath or chest pain. REDUCE STRESS Chronic emotional and physical stress leads to disease. Ways of reducing stress include meditation, visualization, prayer, yoga and other forms of relaxation therapy. Consistency is the santos. Find a technique that works for you and do it every day. CULTIVATE RELATIONSHIPS Loneliness and isolation have a major negative impact on health. Seek out others who can love, care for and nurture you. Avoid hurtful relationships. MAINTAIN IDEAL BODY WEIGHT The best way to do this is to do all the things above. Our bodies naturally find the right weight if we keep moving and feed ourselves the right food. If your BMI is greater than 25, we strongly recommend a referral to a weight management program. Please speak to us or your family physician about available programs. AVOID NICOTINE IN ALL FORMS This includes all tobacco products, whether chewed, smoked, vaped, or rubbed on the skin. Smoking cessation programs, which can make use of tobacco substitutes, medications to suppress cravings and behavior management, are available. Please contact your family physician about programs in your area. Referring Provider: HARSHIL GOODWIN [[id number]] Allergies As of Date: 03/17/2018 Noted Allergy Reaction DEMEROL (MEPERIDINE) 06/27/2008 Comments: Heart problem Date Reviewed: 03/17/2018 Reviewed by: Daya Lazaro MA - Fully Assessed Reason for Visit: Established Patient [175] Primary Visit Diagnosis:GREEN (dyspnea on exertion) [R06.09] Other Visit Diagnoses:Chest pain, unspecified type [R07.9] Shortness of breath [R06.02] Order(s):ECG COMPLETE W INTERPRETATION [ECG01] Order #: [id number] FUTURE STRESS REGULAR W/TREAD [[id number]] Order #: [id number]: 1 atenolol (TENORMIN) 50 mg tabletTake 1 tablet by mouth once daily.Disp: 30 tabletRfl: 11 Prescriptions as of 03/17/2018 Sig: AMLODIPINE 5 MG TABLET TAKE 1 TABLET EVERY DAY ATORVASTATIN 40 MG TABLET Take 1 tablet by mouth once d* TAMSULOSIN 0.4 MG CAPSULE Take 0.4 mg by mouth. ASPIRIN 81 MG TABLET,DELAYED * Take 1 tablet by mouth once d* * CENTRUM SILVER TABLET Take one(1) tablet daily. ATENOLOL 50 MG TABLET Take 1 tablet by mouth once d* More... Problem List As Of Date 03/17/2018 Noted Resolved Essential hypertension [I10] INVALID FOR* Hyperlipidemia [E78.5] INVALID FOR* Impotence of Organic Origin [N52.9] INVALID FOR* CHRONIC RHINITIS [J31.0] INVALID FOR* More... Cervical radiculopathy [M54.12] INVALID FOR*03/03/2012 Unspecified constipation [K59.00] INVALID FOR*01/22/2017 Anxiety state [F41.1] INVALID FOR*01/22/2017 Depression with anxiety [F41.8] INVALID FOR* Memory disturbance [R41.3] INVALID FOR* Encounter for screening colonoscopy [Z12.11] INVALID FOR*08/31/2015 CARLOTTA on CPAP [G47.33, Z99.89] INVALID FOR* Hypoxemia [R09.02] INVALID FOR* More... Elevated prostate specific antigen (PSA) [R97.2*INVALID FOR* Adenomatous colon polyp [D12.6] INVALID FOR* Other instructions from your clinician: LIFESTYLE CHANGE A healthy lifestyle is the most important component of your overall treatment plan. 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 EAT A WHOLE FOOD, PLANT BASED DIET The nutrition your body gets is more important than the medicine you take. What matters most is the overall way you eat. We encourage you to minimize the use of animal products (which include dairy and all meats except fatty fish) and use whole, unprocessed plant foods to provide your protein, vitamins and other nutrients. We have a lot of information to share with you on this topic. This is not a diet. It is a way of life that you will keep with you. EXERCISE REGULARLY It is not important to spend hours in the gym, lifting weights and perspiring heavily. A total of 2-3 hours per week of aerobic (causing you to be moderately short of breath) exercise is sufficient to improve your health. Talk to us before you begin a new exercise program, if you have heart disease or experience shortness of breath or chest pain. REDUCE STRESS Chronic emotional and physical stress leads to disease. Ways of reducing stress include meditation, visualization, prayer, yoga and other forms of relaxation therapy. Consistency is the santos. Find a technique that works for you and do it every day. CULTIVATE RELATIONSHIPS Loneliness and isolation have a major negative impact on health. Seek out others who can love, care for and nurture you. Avoid hurtful relationships. MAINTAIN IDEAL BODY WEIGHT The best way to do this is to do all the things above. Our bodies naturally find the right weight if we keep moving and feed ourselves the right food. If your BMI is greater than 25, we strongly recommend a referral to a weight management program. Please speak to us or your family physician about available programs. AVOID NICOTINE IN ALL FORMS This includes all tobacco products, whether chewed, smoked, vaped, or rubbed on the skin. Smoking cessation programs, which can make use of tobacco substitutes, medications to suppress cravings and behavior management, are available. Please contact your family physician about programs in your area. Prescriptions ordered this encounter Disp Refills Start End ATENOLOL 50 MG TABLET 30 t* 11 03/17/2018 Route: ORAL Sig: Take 1 tablet by mouth once daily. Encounter Status:Closed by CHAPIN WHITE MD on 03/17/18 PROGRESS Observed: 03/17/2018 Status: COMPLETED Source: [place] 11:48 AM [facility] REPOSITORY [facility] ID: [id number] Author: Chapin White Service: (none) Author Type: Physician Type: Progress Notes Filed: 03/17/2018 4:43 PM Note Text: PERTINENT CARDIAC HISTORY Aortic stenosis - mild HTN HL CARLOTTA - ASV Carotid disease - mild ADHERENCE TO GUIDELINES JOHNNY-I or ARB for HF with prior LVEF<40 (NQF 0081) - N/A ASA or Plavix for ASHD (NQF 0067) - met Beta hunter for ASHD with prior ME or prior LVEF<40 (NQF 0070) - N/A Beta hunter for HF with prior LVEF<40 (NQF 0083) - N/A JOHNNY-I or ARB for ASHD with DM or prior LVEF<40 (NQF 0066) - N/A Statin therapy for ASHD or FHL or DM - met BMI documented and plan if >25 (NQF 0421) - lifestyle recommendation form Tobacco use screening and referral (NQF 0028) - lifestyle recommendation form Recommendation for whole food, plant based diet - lifestyle recommendation form CLINICAL IMPRESSION/PLAN: Chicho Booker has stable exercise tolerance. There is no evidence of progression of his aortic valve disease. He has developed a dynamic gradient which may increase his risk of hypotension perioperatively. It will be several weeks before any surgery is performed. I recommend that he begin atenolol 50 milligrams daily. I've asked him to contact me with report of vital signs next week and we can make further adjustments as needed. I recommend that he have a non-imaging stress test on medication prior to surgery. He has not been exercising as much and I cannot ascertain his exercise tolerance. He will be seen in 6 months or as needed. Written and verbal health teaching given to patient, patient verbalizes understanding and agrees with treatment plan. DIAGNOSIS FOR VISIT: Aortic stenosis Hypertension HISTORY OF PRESENT ILLNESS Chicho Booker returns for follow-up of his valvular heart disease and hypertension. He reports some rare episodes of chest tightness lasting seconds. These episodes are nonexertional. There is no radiation and he has taken no nitroglycerin. He reports stable exercise tolerance. He has not been doing much physical activity because of diagnosis of prostate cancer. He will likely be undergoing some type of prostate procedure. He's had no orthopnea or edema. He denies syncope, TIAs, amaurosis and claudication. He's had minimal palpitations. ALLERGIES: ALLERGIES Allergen Reactions - Demerol [Meperidine] Heart problem CURRENT OUTPATIENT MEDICATIONS: amLODIPine (NORVASC) 5 mg tablet TAKE 1 TABLET EVERY DAY atorvastatin (LIPITOR) 40 mg tablet Take 1 tablet by mouth once daily. tamsulosin ER (FLOMAX) 0.4 mg cp24 Take 0.4 mg by mouth. aspirin, enteric coated (ECOTRIN LOW STRENGTH) 81 mg EC tablet Take 1 tablet by mouth once daily. multivitamins w-minerals/lut(CENTRUM SILVER TAB) Take one(1) tablet daily. PHYSICAL EXAMINATION: VITAL SIGNS: BP 154/82 Pulse 98 Chest: Clear to auscultation. Trachea is midline. Air entry is equal. Cardiac: Regular rhythm. S1 and S2 are normal. PMI is nondisplaced. There is a 2/6 early systolic murmur of aortic stenosis. Carotids are brisk with soft bilateral bruits. JVP is less than 10 cm. Abdomen: Soft and nontender. There are no pulsatile masses or bruits. No liver enlargement. Bowel sounds are active. Extremities: No edema. Pulses are intact and symmetrical. EKG shows sinus rhythm. There is left axis deviation. No significant change is seen. Recent labs were reviewed. Renal function is normal. LDL was 109. Echocardiogram was performed today. This shows stable left ventricular function. Valvular gradients are stable. There is now a dynamic LVOT gradient Electronically Signed: Chapin White MD March 17, 2018 11:48 AM CC: Harshil Goodwin MD EKG1 Observed: 03/17/2018 Status: F Source: [place] 11:25 AM [facility] REPOSITORY NAME : CHICHO BOOKER PID : [id number] : 1945 Gender : Male Race : ORD : Procedure Date : Mar 17 2018 11:25:08 Edit Date : Mar 18 2018 12:38:39 Diagnosis:NORMAL SINUS RHYTHM LEFT AXIS DEVIATION CONSIDER INFERIOR MYOCARDIAL INFARCTION , AGE UNDETERMINED ABNORMAL ECG NO SIGNIFICANT CHANGE FROM PREVIOUS ECG Confirmed by CHAPIN WHITE MD ([id number]) on 03/18/2018 12:38:37 PM Ventricular Rate : 90 BPM Atrial Rate : 90 BPM P-R Interval : 170 ms QRS Duration : 88 ms Q-T Interval : 354 ms QTC Calculation(Bezet) : 433 ms P Kingman : 46 degrees R Kingman : -47 degrees T Kingman : 18 degrees Test Reason : Location : 136 : [place] Overread By : CHAPIN WHITE MD Edited By : CHAPIN WHITE MD Referred By : CHRISTOPHER, Acquired by : , PROSTATE BIOPSY Observed: 03/11/2018 Status: F Source: [place] 12:00 AM [facility] [place] Patient: CHICHO BOOKER : 1945 (73/M) Acct Num: [id number] Phys: Rosetta MARIE,[place] Unit Num: [id number] Loc: [facility]SPEC Specimen: [id number] Received: 03/11/187 Spec Type: PROST BX TISSUES 1 TISSUES: A. PROSTATE RIGHT - APEX B. PROSTATE RIGHT - MID C. PROSTATE RIGHT - BASE D. PROSTATE LEFT - APEX E. PROSTATE LEFT - MID F. PROSTATE LEFT - BASE COMMENT Case has been reviewed in consultation with Dr. Sheppard who concurs with the above diagnosis. IDC:SJ GROSS DESCRIPTION A - Received is one container designated prostate, right apex. The specimen consists of two elongated fragments of light jerry-white soft tissue each measuring 0.6 cm in length and 0.1 cm in diameter. The specimen is totally submitted in one cassette. B - Received is one container designated prostate, right mid. The specimen consists of two elongated fragments of light jerry-white soft tissue each measuring 0.7 cm in length and 0.1 cm in diameter. The specimen is totally submitted in one cassette. C - Received is one container designated prostate, right base. The specimen consists of two elongated fragments of light jerry-white soft tissue measuring 0.7 and 1.3 cm in length and 0.1 cm in diameter. The specimen is totally submitted in one cassette. D - Received is one container designated prostate, left apex. The specimen consists of one elongated fragment of light jerry-white soft tissue measuring 1.2 cm in length and 0.1 cm in diameter. The specimen is totally submitted in one cassette. E - Received is one container designated prostate, left mid. The specimen consists of two elongated fragments of light jerry-white soft tissue measuring 0.5 and 0.7 cm in length and 0.1 cm in diameter. The specimen is totally submitted in one cassette. F - Received is one container designated prostate, left base. The specimen consists of two elongated fragments of light jerry-white soft tissue measuring 1.2 and 1.5 cm in length and 0.1 cm in diameter. The specimen is totally submitted in one cassette. / EMORY:rg 03/11/18 TC:0 CPT: G0146 HEADER OPERATION: Prostate biopsy PRE-OP DIAGNOSIS: Elevated PSA TISSUE SUBMITTED: A - Right apex, B - Right mid, C - Right base, D - Left apex , E - Left mid, F - Left base MICROSCOPIC DESCRIPTION Slides are reviewed. MICROSCOPIC DIAGNOSIS A. Right prostate, apex, core biopsy: Chronic inflammation with focal acute inflammation. Glandular atrophy. Focal high-grade prostatic intraepithelial neoplasia (HGPIN). B. Right prostate, mid, core biopsy: Chronic inflammation and focal glandular atrophy. C. Right prostate, base, core biopsy: Mild chronic inflammation and focal glandular atrophy. D. Left prostate, apex, core biopsy: Mild chronic inflammation. E. Left prostate, mid, core biopsy: Adenocarcinoma: Alanna grade: 6 (3+3) Cores involved: 2 out of 2 Tissue involved: 50% Greatest tumor length: 5 mm F. Left prostate, base, core biopsy: Adenocarcinoma: Alanna grade: 7 (3+4) Cores involved: 2 out of 2 Tissue involved: 90% Greatest tumor length: 10 mm (discontinuous) AM:rg 03/12/18 PSA RESULTS 1 Date Time Test Result Flag (u) Normal Range 02/17/18 1030 PSA, DIAGNOSTIC 6.44 H 0.0-4.0 ng/mL 1 This test was performed using the TPSA assay method for the Dimension chemistry system. Values obtained with different assay methods cannot be used interchangably. When changing PSA assays in the course of monitoring a patient, additional sequential testing should be carried out to confirm baseline values. Signed Jasper Jenelle 03/12/18 <signature on file> Performed By: #### PPROSBIL #### [facility] [address], [address] PSA,TOTAL- DIAGNOSTIC Collected: 02/17/2018 Status: F Source: [place] 10:30 AM [facility] [place] TYPE CODE TESTS RESULT OUT OF REFERENCE UNITS RANGE LAB [id number] 0.0-4.0 ng/mL PSA, High DIAGNOSTIC 6.44 Result Comment: This test was performed using the TPSA assay method for the Dimension chemistry system. Values obtained with different assay methods cannot be used interchangably. When changing PSA assays in the course of monitoring a patient, additional sequential testing should be carried out to confirm baseline values. Performed By: #### [id number] #### [facility] [address] [place], [address] CNOV Observed: 01/26/2018 Status: COMPLETED Source: [place] 11:00 AM [facility] REPOSITORY Office Visit (INTMWS) CHICHO BOOKER ([id number]) 1945 M Date Time Provider Department 01/26/18 11:00 AM VIRGINIA KRAUSE ([place]) INTMWS During your visit today, we recorded the following information about you: Temperature Pulse Respiration Blood pressure 97.9 degrees 84/minute 14/minute 124/89 Weight Height 81.2 kg 1.62 m Virginia Krause APRN.CNP 01/26/2018 11:10 AM Signed Medicare Yearly Visit Medical B eligibilty date 2011 Date of last exam 01/22/17 PAST MEDICAL HISTORY Diagnosis Date - Adenomatous colon polyp 08/31/2015 - Cervical radiculopathy 06/13/2010 - Chronic rhinitis 06/27/2008 Trial of nasal saline for the congestion in 06-10 - Contracture of elbow 10/01/2009 Chronic right elbow contracture. 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 - Pure hypercholesterolemia - Snoring PAST SURGICAL HISTORY Procedure Laterality Date - ANTERIOR DISCECTOMY CSpine, Fusion, allograft bone graft - APPENDECTOMY - COLONOSCOP W/ OR W/O [facility] SPEC Colonoscopy - COLONOSCOP W/ OR W/O BRSH SPEC 04/13/2012 Colonoscopy - COLONOSCOP W/ OR W/O BRS SPEC 08/31/2015 Colonoscopy - EGD W/O OR W/BRUSH/WASH EGD - PAST SURGICAL HISTORY OF right hernia x 2 - PAST SURGICAL HISTORY OF left hernia - PAST SURGICAL HISTORY OF 05/22/01 exc right leg skin leision - REMOVAL OF TONSILS,<12 Y/O Tonsillectomy and adnoids Demerol [Meperidine] Medications reviewed: Yes FAMILY HISTORY Problem Relation Age of Onset - COPD Mother age 81 - Alzheimer's Disease Mother - Heart Father alive at age 85. Valve surgery. 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 He watches his diet for sodium, low fat and low cholesterol most of the time. Has issues with portion size. Does not drink sodas or eat simple sugars. Eats fruits and vegetables daily. List of current specialists seen: Cardiology: Dr. White Urology: Dr. Sargent End of Live Planning discussed including patients advanced directive wishes: Yes I am willing to follow Chicho's advanced directives. Depression screen He in the past two weeks denies having felt down, depressed, hopeless or with little interest or pleasure in doing things. Functional Ability/Safety Screen 1. Was the patient's timed Up and Go test unsteady or longer than 30 seconds? No 2. Does the patient need help with the phone, transportation, shopping,preparing meals, housework, laundry, medications or managing money? No 3. Does your home have rugs in the hallway, lack of grab bars in the bathroom, lack of handrails on the stairs or have poor lighting? No Hearing Evaluation: normal PHYSICAL EXAM BP 124/89 Pulse 84 Temp 36.6 ?C (97.9 ?F) (Temporal Artery) Resp 14 Ht 162 cm (5' 3.78) Wt 81.2 kg (179 lb) SpO2 96% BMI 30.94 kg/m? Alert and oriented X 3: YES Body mass index is 30.94 kg/m?. Visual acuity: OD: 20/25 OS: 20/70 OU: 20/30 Component Latest Ref Rng AND Units 01/10/2018 Protein, Total 6.3 - 8.0 g/dL 7.6 Albumin 3.9 - 4.9 g/dL 4.5 Calcium 8.5 - 10.2 mg/dL 9.6 Bilirubin, Total 0.2 - 1.3 mg/dL 0.4 Alkaline Phosphatase 36 - 108 U/L 67 AST 14 - 40 U/L 26 Glucose 74 - 99 mg/dL 96 BUN 9 - 24 mg/dL 15 Creatinine 0.73 - 1.22 mg/dL 0.84 Sodium 136 - 144 mmol/L 139 Potassium 3.7 - 5.1 mmol/L 4.5 Chloride 97 - 105 mmol/L 102 CO2 22 - 30 mmol/L 23 Anion Gap 9 - 18 mmol/L 14 ALT 10 - 54 U/L 26 eGFR- >60 eGFR-All Other Races . >60 Cholesterol, Total <200 mg/dL 184 Triglyceride <150 mg/dL 193 (H) HDL Cholesterol >39 mg/dL 36 (L) LDL Cholesterol <100 mg/dL 109 (H) Non HDL Cholesterol <130 mg/dL 148 (H) Fasting Time hrs 12 VLDL Cholesterol <30 mg/dL 39 (H) TC:HDL Ratio <5.10 5.11 (H) LDL:HDL Ratio <2.54 3.03 (H) PSA 0.00 - 2.59 ng/mL 4.55 (H) ASSESSMENT/PLAN: 1. Encounter for Medicare annual wellness exam - ICD9: V70.0, ICD10: Z00.00 (primary diagnosis) The following prevention plan was discussed during the office visit and provided to the patient: - Reviewed labs with patient in detail - Discussed health maintenance, including regular aerobic exercise, low fat diet, and periodic exams. - Weight Loss - Glaucoma screening 2. Mixed hyperlipidemia - ICD9: 272.2, ICD10: E78.2 Patient reports pain in arms and hands. Would like to decrease dose of Lipitor from 80 to 40 mg. Discussed current cholesterol guidelines, would still like to decrease dose. Notify office if symptoms persist or improve after decreasing dose 3. Elevated prostate specific antigen (PSA) - ICD9: 790.93, ICD10: R97.20 Managed by urology, Dr. Sargent PSA result printed and given to patient to take to urology follow-up 4. Depression with anxiety - ICD9: 300.4, ICD10: F41.8 Stopped Celexa, feels that since going back to work his mood has improved and no longer needs this medication Virginia Krause, RETAIL OPERATIONS SPECIALIST.BUSINESS CONTINUITY GLOBAL DIRECTOR Referring Provider: HARSHIL GOODWIN [[id number]] Allergies As of Date: 01/26/2018 Noted Allergy Reaction DEMEROL (MEPERIDINE) 06/27/2008 Comments: Heart problem Date Reviewed: 01/26/2018 Reviewed by: Shantel No Metal Sprayer - Fully Assessed Primary Visit Diagnosis:Encounter for Medicare annual wellness exam [Z00.00] Other Visit Diagnoses:Mixed hyperlipidemia [E78.2] Elevated prostate specific antigen (PSA) [R97.20] Depression with anxiety [F41.8] Order(s):atorvastatin (LIPITOR) 40 mg tabletTake 1 tablet by mouth once daily.Disp: Rfl: Prescriptions as of 01/26/2018 Sig: ATORVASTATIN 40 MG TABLET Take 1 tablet by mouth once d* AMLODIPINE 5 MG TABLET TAKE 1 TABLET EVERY DAY TAMSULOSIN 0.4 MG CAPSULE Take 0.4 mg by mouth. ASPIRIN 81 MG TABLET,DELAYED * Take 1 tablet by mouth once d* * CENTRUM SILVER TABLET Take one(1) tablet daily. More... Problem List As Of Date 01/26/2018 Noted Resolved Essential hypertension [I10] INVALID FOR* Hyperlipidemia [E78.5] INVALID FOR* Impotence of Organic Origin [N52.9] INVALID FOR* CHRONIC RHINITIS [J31.0] INVALID FOR* More... Cervical radiculopathy [M54.12] INVALID FOR*03/03/2012 Unspecified constipation [K59.00] INVALID FOR*01/22/2017 Anxiety state [F41.1] INVALID FOR*01/22/2017 Depression with anxiety [F41.8] INVALID FOR* Memory disturbance [R41.3] INVALID FOR* Encounter for screening colonoscopy [Z12.11] INVALID FOR*08/31/2015 CARLOTTA on CPAP [G47.33, Z99.89] INVALID FOR* Hypoxemia [R09.02] INVALID FOR* More... Elevated prostate specific antigen (PSA) [R97.2*INVALID FOR* Adenomatous colon polyp [D12.6] INVALID FOR* Prescriptions ordered this encounter Disp Refills Start End ATORVASTATIN 40 MG TABLET 01/26/2018 Class: Med Update Route: ORAL Sig: Take 1 tablet by mouth once daily. Medications Discontinued During This Encounter atorvastatin (LIPITOR) 40 mg tablet 180 * 1 09/11/2017 01/26/2018 Sig: TAKE 2 TABLETS EVERY DAY AT BEDTIME Disc: Reason for discontinue is not on file. citalopram (CELEXA) 20 mg tablet 90 t* 3 04/22/2017 01/26/2018 Sig: TAKE 1 TABLET EVERY DAY Disc: Discontinued by Patient Disposition: Return in about 6 months (around 07/29/2018) for routine follow-up. Follow-up and Disposition History Recorded Encounter Status:Closed by VIRGINIA KRAUSE CNP on 01/26/18 PROGRESS Observed: 01/26/2018 Status: COMPLETED Source: [place] 10:43 AM [facility] [place] REPOSITORY [facility] ID: [id number] Author: Virginia Rice) [place] Service: (none) Author Type: Nurse Practitioner Type: Progress Notes Filed: 01/26/2018 11:10 AM Note Text: Medicare Yearly Visit Medical B eligibilty date 2011 Date of last exam 01/22/17 PAST MEDICAL HISTORY Diagnosis Date - Adenomatous colon polyp 08/31/2015 - Cervical radiculopathy 06/13/2010 - Chronic rhinitis 06/27/2008 Trial of nasal saline for the congestion in 06-10 - Contracture of elbow 10/01/2009 Chronic right elbow contracture. 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 - Pure hypercholesterolemia - Snoring PAST SURGICAL HISTORY Procedure Laterality Date - ANTERIOR DISCECTOMY CSpine, Fusion, allograft bone graft - APPENDECTOMY - COLONOSCOP W/ OR W/O [facility] SPEC Colonoscopy - COLONOSCOP W/ OR W/O [facility] SPEC 04/13/2012 Colonoscopy - COLONOSCOP W/ OR W/O [facility] SPEC 08/31/2015 Colonoscopy - EGD W/O OR W/BRUSH/WASH EGD - PAST SURGICAL HISTORY OF right hernia x 2 - PAST SURGICAL HISTORY OF left hernia - PAST SURGICAL HISTORY OF 05/22/01 exc right leg skin leision - REMOVAL OF TONSILS,<14 Y/O Tonsillectomy and adnoids Demerol [Meperidine] Medications reviewed: Yes FAMILY HISTORY Problem Relation Age of Onset - COPD Mother age 81 - Alzheimer's Disease Mother - Heart Father alive at age 85. Valve surgery. 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 He watches his diet for sodium, low fat and low cholesterol most of the time. Has issues with portion size. Does not drink sodas or eat simple sugars. Eats fruits and vegetables daily. List of current specialists seen: Cardiology: Dr. White Urology: Dr. Sargent End of Live Planning discussed including patients advanced directive wishes: Yes I am willing to follow Chicho's advanced directives. Depression screen He in the past two weeks denies having felt down, depressed, hopeless or with little interest or pleasure in doing things. Functional Ability/Safety Screen 1. Was the patient's timed Up and Go test unsteady or longer than 30 seconds? No 2. Does the patient need help with the phone, transportation, shopping,preparing meals, housework, laundry, medications or managing money? No 3. Does your home have rugs in the hallway, lack of grab bars in the bathroom, lack of handrails on the stairs or have poor lighting? No Hearing Evaluation: normal PHYSICAL EXAM BP 124/89 Pulse 84 Temp 36.6 ?C (97.9 ?F) (Temporal Artery) Resp 14 Ht 162 cm (5' 3.78) Wt 81.2 kg (179 lb) SpO2 96% BMI 30.94 kg/m? Alert and oriented X 3: YES Body mass index is 30.94 kg/m?. Visual acuity: OD: 20/25 OS: 20/70 OU: 20/30 Component Latest Ref Rng AND Units 01/10/2018 Protein, Total 6.3 - 8.0 g/dL 7.6 Albumin 3.9 - 4.9 g/dL 4.5 Calcium 8.5 - 10.2 mg/dL 9.6 Bilirubin, Total 0.2 - 1.3 mg/dL 0.4 Alkaline Phosphatase 36 - 108 U/L 67 AST 14 - 40 U/L 26 Glucose 74 - 99 mg/dL 96 BUN 9 - 24 mg/dL 15 Creatinine 0.73 - 1.22 mg/dL 0.84 Sodium 136 - 144 mmol/L 139 Potassium 3.7 - 5.1 mmol/L 4.5 Chloride 97 - 105 mmol/L 102 CO2 22 - 30 mmol/L 23 Anion Gap 9 - 18 mmol/L 14 ALT 10 - 54 U/L 26 eGFR- >60 eGFR-All Other Races . >60 Cholesterol, Total <200 mg/dL 184 Triglyceride <150 mg/dL 193 (H) HDL Cholesterol >39 mg/dL 36 (L) LDL Cholesterol <100 mg/dL 109 (H) Non HDL Cholesterol <130 mg/dL 148 (H) Fasting Time hrs 12 VLDL Cholesterol <30 mg/dL 39 (H) TC:HDL Ratio <5.10 5.11 (H) LDL:HDL Ratio <2.54 3.03 (H) PSA 0.00 - 2.59 ng/mL 4.55 (H) ASSESSMENT/PLAN: 1. Encounter for Medicare annual wellness exam - ICD9: V70.0, ICD10: Z00.00 (primary diagnosis) The following prevention plan was discussed during the office visit and provided to the patient: - Reviewed labs with patient in detail - Discussed health maintenance, including regular aerobic exercise, low fat diet, and periodic exams. - Weight Loss - Glaucoma screening 2. Mixed hyperlipidemia - ICD9: 272.2, ICD10: E78.2 Patient reports pain in arms and hands. Would like to decrease dose of Lipitor from 80 to 40 mg. Discussed current cholesterol guidelines, would still like to decrease dose. Notify office if symptoms persist or improve after decreasing dose 3. Elevated prostate specific antigen (PSA) - ICD9: 790.93, ICD10: R97.20 Managed by urology, Dr. Sargent PSA result printed and given to patient to take to urology follow-up 4. Depression with anxiety - ICD9: 300.4, ICD10: F41.8 Stopped Celexa, feels that since going back to work his mood has improved and no longer needs this medication Virginia Older, RETAIL OPERATIONS SPECIALIST.BUSINESS CONTINUITY GLOBAL DIRECTOR COMP METABOLIC PANEL Collected: 01/10/2018 Status: F Source: [place] 8:15 AM [facility] REPOSITORY TYPE CODE TESTS RESULT OUT OF REFERENCE UNITS RANGE LAB TP 6.3-8.0 g/dL Protein, Total 7.6 LAB ALB 3.9-4.9 g/dL Albumin 4.5 LAB CA 8.5-10.2 mg/dL Calcium, Total 9.6 LAB TBIL 0.2-1.3 mg/dL Bilirubin, Total 0.4 LAB ALKP 36-108 U/L Alkaline Phosphatase 67 LAB AST 14-40 U/L AST 26 LAB GLU 74-99 mg/dL Glucose 96 Result Comment: The [place] [employer] (ADA) provides guidance for cutoff values for fasting glucose and random glucose. The ADA defines fasting as no caloric intake for at least 8 hours. Fas ting plasma glucose results between 100 to 125 mg/dL indicate increased risk for diabetes (prediabetes). Fasting plasma glucose results greater than or equal to 126 mg/dL meet the criteria for diagnosis of diabetes. In the absence of unequivocal hyperglycemia, results should be confirmed by repeat testing. In a patient with classic symptoms of hyperglycemia or hyperglycemic crisis, random plasma glucose results greater than or equal to 200 mg/dL meet the criteria for diagnosis of diabetes. Reference: Standards of Medical Care in Diabetes 2016, [place] [employer]. Diabetes Care. 2016.39(Suppl 1). LAB BUN 9-24 mg/dL BUN 15 LAB CRET 0.73-1.22 mg/dL Creatinine 0.84 LAB NA 136-144 mmol/L Sodium 139 LAB K 3.7-5.1 mmol/L Potassium 4.5 LAB CL 97-105 mmol/L Chloride 102 LAB CO2 22-30 mmol/L CO2 23 LAB AGAP 9-18 mmol/L Anion Gap 14 LAB ALT 10-54 U/L ALT 26 LAB GFRAA eGFR- Amer. >60 LAB GFRNAA . eGFR-All Other Races >60 Result Comment: eGFR (Estimated GFR) Units of measure: mL/min/1.73 meters squared eGFR is derived from the reexpressed MDRD Study equation using the following parameters: serum creatinine, age, gender and race. The creatinine assay has been calibrated to be traceable to IDMS. An eGFR <60 mL/min/1.73m2 for >3 months is consistent with chronic kidney disease. Refer to KDOQI guidelines for clinical interpretation. In patients with unstable renal function, e.g. those with acute kidney injury, the eGFR may not accurately reflect actual GFR. Performed By: #### CMP, LIPB, PSA #### [facility] [address] [place], [place] [address] LIPID PANEL, BASIC Collected: 01/10/2018 Status: F Source: [place] 8:15 AM [facility] REPOSITORY TYPE CODE TESTS RESULT OUT OF REFERENCE UNITS RANGE LAB CHOL <200 mg/dL Cholesterol 184 Result Comment: <200 mg/dL, Desirable 200-239 mg/dL, Borderline high >239 mg/dL, High LAB TRIGLY <150 mg/dL Triglyceride High 193 Result Comment: <150 mg/dL, Normal 150-199 mg/dL, Borderline high 200-499 mg/dL, High >499 mg/dL, Very high LAB HDL >39 mg/dL HDL-Cholesterol Low 36 Result Comment: 40-59 mg/dL, Acceptable >59 mg/dL, High: Negative risk factor for coronary heart disease <40 mg/dL, Low: Positive risk factor for coronary heart disease LAB LDL <100 mg/dL LDL-Cholesterol High 109 Result Comment: <100 mg/dL, Optimal 100-129 mg/dL, Near optimal/above optimal 130-159 mg/dL, Borderline high 160-189 mg/dL, High >189 mg/dL, Very high Secondary prevention optimal LDL Cholesterol levels are recommended to be < 70 mg/dL LAB NONHDL <130 mg/dL Non HDL High Cholesterol 148 Result Comment: <130 mg/dL, Optimal 130-159 mg/dL, Near optimal/above optimal 160-189 mg/dL, Borderline high 190-219 mg/dL, High >219 mg/dL, Very high Secondary prevention optimal non HDL Cholesterol levels are recommended to be < 100 mg/dL LAB FT hrs Fasting Time 12 LAB VLDL <30 mg/dL High VLDL Cholesterol 39 LAB TCHDL <5.10 High TC:HDL Ratio 5.11 LAB LDLHDL <2.54 High LDL:HDL Ratio 3.03 Result Comment: Reference: 1. National Cholesterol Education Program ATP III Guideline At-A-Glance Quick Desk Reference: National Heart, Lung, and Blood [place]. National Institutes of Health. 2001: NIH Publication No. 01-3305. 2. An International Atherosclerosis Society position paper: global recommendations for the management of dyslipidemia: executive summary, Atherosclerosis. 2014: 232(2):410-413. Performed By: #### CMP, LIPB, PSA #### [facility] [employer] [address] [place], [place] [id number] PSA, DIAGNOSTIC Collected: 01/10/2018 Status: F Source: [place] 8:15 AM [facility] REPOSITORY TYPE CODE TESTS RESULT OUT OF REFERENCE UNITS RANGE LAB PSA 0.00-2.59 ng/mL PSA, High Diagnostic 4.55 Result Comment: Total PSA test methodology used is the Electrochemiluminescence Immunoassay. For an individual patient, the significance of a PSA level should be interpreted in a broad clinical context, including age, race, family history, digital rectal exam, prostate size, results of prior te sting (prostate biopsy, free PSA, PCA3), and use of 5-alpha reductase inhibitors. Considering the high incidence of asymptomatic cancer in the general population that may not pose an ultimate risk to a patient, the decision to recommend urological evaluation or prostate biopsy should be individualized after consideration of all these factors. REFERENCE: Zahira Haley M.D., M.P.H., Dylan Spears M.D., Ph.D., Robert Bagley M.D., Christin East, M.P.H., Eri Hillman Sc.D. Effect of Verification Bias on Screening for Prostate Cancer by Measurement of Prostatic Specific Antigen. N Engl J Med 2003,349:335-42. Performed By: #### CMP, LIPB, PSA #### [facility] [employer] [address] [place], [place] [id number] CNCO Observed: 01/06/2018 Status: COMPLETED Source: [place] 12:00 AM [facility] REPOSITORY Letter Text [facility] Department of Internal Medicine [address] [facility]. [place] [phone] Chicho Booker [address] [facility] [address] [facility] [address] January 06, 2018 Dear BoraMelissa, Due to unforeseen circumstances, there has been a change in the schedule for Dr Goodwin. Your original appointment scheduled for 01/24/2018 at 8:00 AM has been rescheduled to 01/23/2018 at 11:20 AM. If this is not convenient, please give our office a call at [phone]. I apologize for any inconvenience this may cause you. Sincerely, Department of Internal Medicine [facility] PROGRESS Observed: 11/19/2017 Status: COMPLETED Source: [place] 12:48 PM [facility] REPOSITORY HNO ID: [id number] Author: Abby Salomon Service: (none) Author Type: (none) Type: Progress Notes Filed: 11/19/2017 12:49 PM Note Text: Radiology Service Progress Note PATIENT NAME: Chicho Booker DATE OF SERVICE: November 19, 2017 TIME: 12:48 PM PATIENT IDENTITY VERIFICATION COMPLETED USING TWO (2) METHODS: Patient confirmed name verbally and Date of . PATIENT GENDER DATA: Female. status: : No status: NO. PATIENT RELEVANT IMPLANT DATA REVIEWED: Not Applicable RADIOLOGY DEPARTMENT: Women's Health bilateral diagnostic mammogram PERIPHERAL IV DATA: Not applicable SIGNED BY: Abby Salomon November 19, 2017 12:48 PM CNCO Observed: 11/19/2017 Status: COMPLETED Source: [place] 11:30 AM [facility] REPOSITORY HNO ID: [id number] Author: Mammography Coordinator Service: (none) Author Type: Physician Type: Letter Filed: 11/20/2017 11:31 PM Note Text: November 19, 2017 PID: [id number] Chicho Booker [address] [facility] [address] [place] [address] Dear Mr. Booker, We are pleased to inform you that the results of your recent breast imaging exam on 11/19/2017 are normal. Your breast images and report will be kept on file here as part of your permanent medical record and are available for your continuing care. It is your responsibility to inform any new physician or new mammography center of your medical records with us. Remember that a negative mammogram does not exclude the possibility of breast disease. You should never ignore a breast lump or any other change in your breasts, even if the mammogram is normal. If you find a lump or other change, talk to you health care provider about it as soon as possible Thank you for allowing us to help in meeting your health care needs. Sincerely, Dr. Nuno Interpreting Radiologist [facility] (Male Normal) CNCO Observed: 11/19/2017 Status: COMPLETED Source: [place] 11:30 AM [facility] REPOSITORY HNO ID: [id number] Author: Mammography Coordinator Service: (none) Author Type: Physician Type: Letter Filed: 11/20/2017 11:31 PM Note Text: November 19, 2017 PID: [id number] Chicho Booker [address] [facility] [address] [place] [address] Dear Mr. Booker, We are pleased to inform you that the results of your recent breast imaging exam on 11/19/2017 are normal. Your breast images and report will be kept on file here as part of your permanent medical record and are available for your continuing care. It is your responsibility to inform any new physician or new mammography center of your medical records with us. Remember that a negative mammogram does not exclude the possibility of breast disease. You should never ignore a breast lump or any other change in your breasts, even if the mammogram is normal. If you find a lump or other change, talk to you health care provider about it as soon as possible Thank you for allowing us to help in meeting your health care needs. Sincerely, Dr. Nuno Interpreting Radiologist [facility] (Male Normal) PROGRESS Observed: 11/19/2017 Status: COMPLETED Source: [place] 11:30 AM [facility] REPOSITORY HNO ID: [id number] Author: Alexandria Perez Service: (none) Author Type: Kennel Assistant Type: Progress Notes Filed: 11/19/2017 11:32 AM Note Text: Radiology Service Progress Note PATIENT NAME: Chicho Booker DATE OF SERVICE: November 19, 2017 TIME: 11:30 AM PATIENT IDENTITY VERIFICATION COMPLETED USING TWO (2) METHODS: Patient confirmed name verbally and Date of . PATIENT GENDER DATA: Male PATIENT RELEVANT IMPLANT DATA REVIEWED: Not Applicable RADIOLOGY DEPARTMENT: Ultrasound PERIPHERAL IV DATA: Not applicable SIGNED BY: ALEXANDRIA PEREZ RDMS RVJani November 19, 2017 11:30 AM [facility] CONWEAVER BREAST LTD Observed: 11/19/2017 Status: F Source: [place] RT 11:21 AM [facility] [place] REPOSITORY * * *Final Report* * * DATE OF EXAM: Nov 19 2017 11:21AM [facility] [id number] - [facility] US BREAST LTD RT / PROCEDURE REASON: multiple diagnoses * * * * Physician Interpretation * * * * #[id number] - [facility] DIAGNOSTIC KIMBERLY MALE BILATERAL DIGITAL DIAGNOSTIC MAMMOGRAM WITH CAD: 11/19/2017 HISTORY: Multiple Diagnoses /Bilateral Diagnostic Mammogram; /Palpable lump right breast. /Abnormal Mammogram. RESULT: TECHNIQUE: The study was acquired using full field digital technology and interpreted from soft copy. Current study was also evaluated with a Computer Aided Detection (CAD). No prior exams were available for comparison. No significant masses, calcifications, or other findings are seen in either breast. NEGATIVE There is no abnormality seen in the right breast to correspond with the palpable abnormality, however, clinical correlation is recommended. There is no mammographic evidence of malignancy. #[id number] - [facility] CONWEAVER BREAST LTD RT ULTRASOUND OF RIGHT BREAST: 11/19/2017 RESULT: No prior exams were available for comparison. Real-time ultrasound of the right breast was performed. No abnormalities were seen sonographically in the right breast. IMPRESSION: NEGATIVE There is no sonographic evidence of malignancy. There is no abnormality seen in the right breast to correspond with the palpable abnormality, however, clinical correlation is recommended. Petey samayoa/henrry:11/19/2017 11:30:40 Plant Floor Automation Manager: Abby Love RT(R)([place]), [facility] letter sent: Male Normal Mammogram BI-RADS: 1 Negative Ultrasound BI-RADS: 1 Negative Unemployment Insurance Director: Henrry Transcribe Date/Time: Nov 19 2017 10:12A Dictated by : PETEY NUNO MD This examination was interpreted and the report reviewed and electronically signed by: PETEY NUNO MD on Nov 19 2017 11:30AM EST [id number] [facility] DIAGNOSTIC KIMBERLY Observed: 11/19/2017 Status: F Source: [place] 10:26 AM [facility] REPOSITORY * * *Final Report* * * DATE OF EXAM: Nov 19 2017 10:26AM [facility] - [facility] DIAGNOSTIC KIMBERLY / PROCEDURE REASON: multiple diagnoses * * * * Physician Interpretation * * * * RESULT: #[id number] - [facility] DIAGNOSTIC KIMBERLY MALE BILATERAL DIGITAL DIAGNOSTIC MAMMOGRAM WITH CAD: 11/19/2017 HISTORY: Multiple Diagnoses /Bilateral Diagnostic Mammogram; /Palpable lump right breast. /Abnormal Mammogram. RESULT: TECHNIQUE: The study was acquired using full field digital technology and interpreted from soft copy. Current study was also evaluated with a Computer Aided Detection (CAD). No prior exams were available for comparison. No significant masses, calcifications, or other findings are seen in either breast. NEGATIVE There is no abnormality seen in the right breast to correspond with the palpable abnormality, however, clinical correlation is recommended. There is no mammographic evidence of malignancy. #[id number] - [facility] US BREAST LTD RT ULTRASOUND OF RIGHT BREAST: 11/19/2017 RESULT: No prior exams were available for comparison. Real-time ultrasound of the right breast was performed. No abnormalities were seen sonographically in the right breast. IMPRESSION: NEGATIVE There is no sonographic evidence of malignancy. There is no abnormality seen in the right breast to correspond with the palpable abnormality, however, clinical correlation is recommended. Petey samayoa/henrry:11/19/2017 11:30:40 Plant Floor Automation Manager: Abby MENDOZA)([place]), [facility] letter sent: Male Normal Mammogram BI-RADS: 1 Negative Ultrasound BI-RADS: 1 Negative Unemployment Insurance Director: Henrry Transcribe Date/Time: Nov 19 2017 10:12A Dictated by: PETEY NUNO MD This examination was interpreted and the report reviewed and electronically signed by: PETEY NUNO MD on Nov 19 2017 11:30AM EST [id number] Observed: 11/05/2017 Status: COMPLETED Source: [place] 10:20 AM [facility] REPOSITORY Office Visit (INTMWS) CHICHO BOOKER ([id number]) 1945 M Date Time Provider Department 11/05/17 10:20 AM VIRGINIA KRAUSE ([place]) INTMWS During your visit today, we recorded the following information about you: Temperature Pulse Respiration Blood pressure 98.9 degrees 98/minute 14/minute 150/100 Weight 81.2 kg Virginia Older, RETAIL OPERATIONS SPECIALIST.[facility] 11/05/2017 10:32 AM Signed CC: Patient presents with: nodule right side axillary and breast: noticed 3 days ago- non moveable-painful to touch HPI Chicho Booker is a 72 year old male who presents today for nodule in the right breast and feeling of fullness in the right axilla. Patient states he noticed a few days ago a hard nodule in the right breast while he was showering. Tender to the touch. Has not changed since he first noticed it. Denies any other lumps in the breast, swelling, skin changes or nipple discharge. Also reports right axilla feels different like there is something there. Denies any noticeable swelling or lumps. 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 - Pure hypercholesterolemia - Snoring PAST SURGICAL HISTORY Procedure Laterality Date - ANTERIOR DISCECTOMY CSpine, Fusion, allograft bone graft - APPENDECTOMY - COLONOSCOP W/ OR W/O BRSH SPEC Colonoscopy - COLONOSCOP W/ OR W/O BRSH SPEC 04/13/2012 Colonoscopy - COLONOSCOP W/ OR W/O [facility] SPEC 08/31/2015 Colonoscopy - EGD W/O OR W/BRUSH/WASH EGD - PAST SURGICAL HISTORY OF right hernia x 2 - PAST SURGICAL HISTORY OF left hernia - PAST SURGICAL HISTORY OF 05/22/01 exc right leg skin leision - REMOVAL OF TONSILS,<12 Y/O Tonsillectomy and adnoids ALLERGIES Demerol [Meperidine] MEDICATIONS amLODIPine (NORVASC) 5 mg tablet TAKE 1 TABLET EVERY DAY atorvastatin (LIPITOR) 40 mg tablet TAKE 2 TABLETS EVERY DAY AT BEDTIME citalopram (CELEXA) 20 mg tablet TAKE 1 TABLET EVERY DAY tamsulosin ER (FLOMAX) 0.4 mg cp24 Take 0.4 mg by mouth. aspirin, enteric coated (ECOTRIN LOW STRENGTH) 81 mg EC tablet Take 1 tablet by mouth once daily. multivitamins w-minerals/lut(CENTRUM SILVER TAB) Take one(1) tablet daily. FAMILY HISTORY Problem Relation Age of Onset - COPD Mother age 81 - Alzheimer's Disease Mother - Heart Father alive at age 85. Valve surgery. - Prostate Cancer Father - Colon Cancer Father - COPD Brother of COPD age 50s Social History Substance Use Topics - Smoking status: Former Smoker Packs/day: 1.00 Years: 12.00 Types: Cigarettes Quit date: 06/02/1974 - Smokeless tobacco: Former User Types: Snuff, Chew - Alcohol use 2.0 oz/week 2 Shots of liquor per week PHYSICAL EXAM BP 150/100 Pulse 98 Temp 37.2 ?C (98.9 ?F) (Temporal Artery) Resp 14 Wt 81.2 kg (179 lb) SpO2 93% BMI 31.21 kg/m? General Appearance: well appearing, in no acute distress, alert Breast: discrete mass of size less than 1 cm noted in upper outer quadrant of right breast. Firm and mobile. Reports tenderness with palpation. Breasts symmetric, no skin or nipple changes, no axillary adenopathy or swelling ASSESSMENT/PLAN: 1. Mass of upper outer quadrant of right breast - ICD9: 611.72, ICD10: N63.11 (primary diagnosis) Reassurance given this is likely benign - US BREAST LTD RT to evaluate further Follow-up pending results 2. Axillary fullness - ICD9: 782.2, ICD10: R22.2 As above - US BREAST LTD RT Prescription instructions reviewed with patient as applicable. Potential red flag symptoms discussed with the patient. Reviewed appropriate action plan to take if red flag symptoms occur. Patient agreeable to treatment plan. Virginia Krause APRN.BUSINESS CONTINUITY GLOBAL DIRECTOR Referring Provider: SELF [200] Allergies As of Date: 11/05/2017 Noted Allergy Reaction DEMEROL (MEPERIDINE) 06/27/2008 Comments: Heart problem Date Reviewed: 11/05/2017 Reviewed by: Shantel No Metal Sprayer - Fully Assessed Reason for Visit: nodule right side axillary and breast [Other] Cmt: noticed 3 days ago-non moveable- painful to touch Primary Visit Diagnosis:Mass of upper outer quadrant of right breast [N63.11] Other Visit Diagnosis:Axillary fullness [R22.2] Order(s):CONWEAVER BREAST Mineful RT [[id number]] Order #: [id number] FUTURE Prescriptions as of 11/05/2017 Sig: AMLODIPINE 5 MG TABLET TAKE 1 TABLET EVERY DAY ATORVASTATIN 40 MG TABLET TAKE 2 TABLETS EVERY DAY AT B* CITALOPRAM 20 MG TABLET TAKE 1 TABLET EVERY DAY TAMSULOSIN 0.4 MG CAPSULE Take 0.4 mg by mouth. ASPIRIN 81 MG TABLET,DELAYED * Take 1 tablet by mouth once d* * CENTRUM SILVER TABLET Take one(1) tablet daily. More... Problem List As Of Date 11/05/2017 Noted Resolved Essential hypertension [I10] INVALID FOR* Hyperlipidemia [E78.5] INVALID FOR* Impotence of Organic Origin [N52.9] INVALID FOR* CHRONIC RHINITIS [J31.0] INVALID FOR* More... Cervical radiculopathy [M54.12] INVALID FOR*03/03/2012 Unspecified constipation [K59.00] INVALID FOR*01/22/2017 Anxiety state [F41.1] INVALID FOR*01/22/2017 Depression with anxiety [F41.8] INVALID FOR* Memory disturbance [R41.3] INVALID FOR* Encounter for screening colonoscopy [Z12.11] INVALID FOR*08/31/2015 CARLOTTA on CPAP [G47.33, Z99.89] INVALID FOR* Hypoxemia [R09.02] INVALID FOR* More... Elevated prostate specific antigen (PSA) [R97.2*INVALID FOR* Adenomatous colon polyp [D12.6] INVALID FOR* Encounter Status:Closed by [place], VIRGINIA LEAHY on 11/05/17 PROGRESS Observed: 11/05/2017 Status: COMPLETED Source: [place] 10:13 AM [facility] REPOSITORY HNO ID: [id number] Author: Virginia Rice) [place] Service: (none) Author Type: Nurse Practitioner Type: Progress Notes Filed: 11/05/2017 10:32 AM Note Text: CC: Patient presents with: nodule right side axillary and breast: noticed 3 days ago-non moveable-painful to touch HPI Chicho Booker is a 72 year old male who presents today for nodule in the right breast and feeling of fullness in the right axilla. Patient states he noticed a few days ago a hard nodule in the right breast while he was showering. Tender to the touch. Has not changed since he first noticed it. Denies any other lumps in the breast, swelling, skin changes or nipple discharge. Also reports right axilla feels different like there is something there. Denies any noticeable swelling or lumps. 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 - Pure hypercholesterolemia - Snoring PAST SURGICAL HISTORY Procedure Laterality Date - ANTERIOR DISCECTOMY CSpine, Fusion, allograft bone graft - APPENDECTOMY - COLONOSCOP W/ OR W/O BRSH SPEC Colonoscopy - COLONOSCOP W/ OR W/O BRSH SPEC 04/13/2012 Colonoscopy - COLONOSCOP W/ OR W/O BRSH SPEC 08/31/2015 Colonoscopy - EGD W/O OR W/BRUSH/WASH EGD - PAST SURGICAL HISTORY OF right hernia x 2 - PAST SURGICAL HISTORY OF left hernia - PAST SURGICAL HISTORY OF 05/22/01 exc right leg skin leision - REMOVAL OF TONSILS,<14 Y/O Tonsillectomy and adnoids ALLERGIES Demerol [Meperidine] MEDICATIONS amLODIPine (NORVASC) 5 mg tablet TAKE 1 TABLET EVERY DAY atorvastatin (LIPITOR) 40 mg tablet TAKE 2 TABLETS EVERY DAY AT BEDTIME citalopram (CELEXA) 20 mg tablet TAKE 1 TABLET EVERY DAY tamsulosin ER (FLOMAX) 0.4 mg cp24 Take 0.4 mg by mouth. aspirin, enteric coated (ECOTRIN LOW STRENGTH) 81 mg EC tablet Take 1 tablet by mouth once daily. multivitamins w-minerals/lut(CENTRUM SILVER TAB) Take one(1) tablet daily. FAMILY HISTORY Problem Relation Age of Onset - COPD Mother age 81 - Alzheimer's Disease Mother - Heart Father alive at age 85. Valve surgery. - Prostate Cancer Father - Colon Cancer Father - COPD Brother of COPD age 50s Social History Substance Use Topics - Smoking status: Former Smoker Packs/day: 1.00 Years: 12.00 Types: Cigarettes Quit date: 06/02/1974 - Smokeless tobacco: Former User Types: Snuff, Chew - Alcohol use 2.0 oz/week 2 Shots of liquor per week PHYSICAL EXAM BP 150/100 Pulse 98 Temp 37.2 ?C (98.9 ?F) (Temporal Artery) Resp 14 Wt 81.2 kg (179 lb) SpO2 93% BMI 31.21 kg/m? General Appearance: well appearing, in no acute distress, alert Breast: discrete mass of size less than 1 cm noted in upper outer quadrant of right breast. Firm and mobile. Reports tenderness with palpation. Breasts symmetric, no skin or nipple changes, no axillary adenopathy or swelling ASSESSMENT/PLAN: 1. Mass of upper outer quadrant of right breast - ICD9: 611.72, ICD10: N63.11 (primary diagnosis) Reassurance given this is likely benign - US BREAST LTD RT to evaluate further Follow-up pending results 2. Axillary fullness - ICD9: 782.2, ICD10: R22.2 As above - US BREAST LTD RT Prescription instructions reviewed with patient as applicable. Potential red flag symptoms discussed with the patient. Reviewed appropriate action plan to take if red flag symptoms occur. Patient agreeable to treatment plan. [place] Krause APRN.CNP PROGRESS Observed: 07/19/2017 Status: COMPLETED Source: [place] 10:28 AM [facility] [place] REPOSITORY HNO ID: [id number] Author: Harshil Goodwin Service: (none) Author Type: Physician Type: Progress Notes Filed: 07/19/2017 10:36 AM Note Text: This note was created using Rosterbot. Subjective Chicho Booker is a 72 year old male was here for follow up. His diarrhea resolved. His hypertension and lipids were controlled. He was started on Flomax for benign prostatic hypertrophy and his elevated PSA was simply being monitored, per Dr. Sargent's recommendation. His obstructive sleep apnea was well controlled with regular CPAP use. Depression and anxiety were controlled. 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 He was referred to Dr. Mendoza for a neurological consultation, but was never called . He was not interested in pursuing neurology opinion at this time. ACTIVE PROBLEM LIST Essential Hypertension Hyperlipidemia Impotence of Organic Origin Chronic Rhinitis Depression With Anxiety Memory Disturbance Carlotta On Cpap Hypoxemia Elevated Prostate Specific Antigen (Psa) Adenomatous Colon Polyp Current Outpatient Prescriptions: citalopram (CELEXA) 20 mg tablet TAKE 1 TABLET EVERY DAY tamsulosin ER (FLOMAX) 0.4 mg cp24 Take 0.4 mg by mouth. amLODIPine (NORVASC) 5 mg tablet TAKE 1 TABLET ONE TIME DAILY atorvastatin (LIPITOR) 40 mg tablet TAKE 2 TABLETS BY MOUTH DAILY AT BEDTIME. aspirin, enteric coated (ECOTRIN LOW STRENGTH) 81 mg EC tablet Take 1 tablet by mouth once daily. multivitamins w-minerals/lut(CENTRUM SILVER TAB) Take one(1) tablet daily. No current facility-administered medications for this visit. Review of Systems Constitutional: Negative. Respiratory: Negative. Cardiovascular: Negative. Gastrointestinal: Negative. Genitourinary: Negative. Psychiatric/Behavioral: Negative. Objective BP 134/78 Pulse 72 Resp 16 Wt 79.8 kg (176 lb) BMI 30.69 kg/m2 Physical Exam Constitutional: No distress. Cardiovascular: Normal heart sounds. Pulmonary/Chest: Breath sounds normal. Musculoskeletal: He exhibits no edema. Psychiatric: He has a normal mood and affect. CMP: Glucose 107 07/12/2017 BUN 13 07/12/2017 Creatinine 0.85 07/12/2017 Sodium 143 07/12/2017 Potassium 4.9 07/12/2017 Chloride 103 07/12/2017 CO2 27 07/12/2017 Cholesterol, Total (mg/dL) Date Value 07/12/2017 172 01/15/2017 203 HDL Cholesterol (mg/dL) Date Value 07/12/2017 40 01/15/2017 58 LDL Cholesterol (mg/dL) Date Value 07/12/2017 112 01/15/2017 108 Triglyceride (mg/dL) Date Value 07/12/2017 102 01/15/2017 186 PSA 2.92 ASSESSMENT/PLAN: 1. Essential hypertension - ICD9: 401.9, ICD10: I10 (primary diagnosis) - good control 2. Mixed hyperlipidemia - ICD9: 272.2, ICD10: E78.2 - good control - COMP METABOLIC PANEL - LIPID PANEL BASIC 3. Depression with anxiety - ICD9: 300.4, ICD10: F41.8 Controlled. 4. Memory disturbance - ICD9: 780.93, ICD10: R41.3 Improved. Neurology consultation declined. 5. CARLOTTA on CPAP - ICD9: 327.23, V46.8, ICD10: G47.33, Z99.89 Controlled. 6. BPH with obstruction/lower urinary tract symptoms - ICD9: 600.01, 599.69, ICD10: N40.1, N13.[address] Sargent. 7. Elevated prostate specific antigen (PSA) - ICD9: 790.93, ICD10: R97.20 See #6 - PSA/PROSTSPECAG DIAG Harshil Goodwin MD BASIC METABOLIC PANL Collected: 07/12/2017 Status: F Source: [place] 8:32 AM [facility] REPOSITORY TYPE CODE TESTS RESULT OUT OF REFERENCE UNITS RANGE LAB GLU 74-99 mg/dL High Glucose 107 Result Comment: The [place] Diabetes [employer] (ADA) provides guidance for cutoff values for fasting glucose and random glucose. The ADA defines fasting as no caloric intake for at least 8 hours. Fas ting plasma glucose results between 100 to 125 mg/dL indicate increased risk for diabetes (prediabetes). Fasting plasma glucose results greater than or equal to 126 mg/dL meet the criteria for diagnosis of diabetes. In the absence of unequivocal hyperglycemia, results should be confirmed by repeat testing. In a patient with classic symptoms of hyperglycemia or hyperglycemic crisis, random plasma glucose results greater than or equal to 200 mg/dL meet the criteria for diagnosis of diabetes. Reference: Standards of Medical Care in Diabetes 2016, [place] [employer]. Diabetes Care. 2016.39(Suppl 1). LAB BUN 9-24 mg/dL BUN 13 LAB CRET 0.73-1.22 mg/dL Creatinine 0.85 LAB NA 136-144 mmol/L Sodium 143 LAB K 3.7-5.1 mmol/L Potassium 4.9 LAB CL 97-105 mmol/L Chloride 103 LAB CO2 22-30 mmol/L CO2 27 LAB AGAP 9-18 mmol/L Anion Gap 13 LAB CA 8.5-10.2 mg/dL Calcium, Total 9.9 LAB GFRAA eGFR- Amer. >60 LAB GFRNAA . eGFR-All Other Races >60 Result Comment: eGFR (Estimated GFR) Units of measure: mL/min/1.73 meters squared eGFR is derived from the reexpressed MDRD Study equation using the following parameters: serum creatinine, age, gender and race. The creatinine assay has been calibrated to be traceable to IDMS. An eGFR <60 mL/min/1.73m2 for >3 months is consistent with chronic kidney disease. Refer to KDOQI guidelines for clinical interpretation. In patients with unstable renal function, e.g. those with acute kidney injury, the eGFR may not accurately reflect actual GFR. Performed By: #### BMP, LIPB, PSA #### [facility] [address] [place], [place] [address] LIPID PANEL, BASIC Collected: 07/12/2017 Status: F Source: [place] 8:32 AM [facility] REPOSITORY TYPE CODE TESTS RESULT OUT OF REFERENCE UNITS RANGE LAB CHOL <200 mg/dL Cholesterol 172 Result Comment: <200 mg/dL, Desirable 200-239 mg/dL, Borderline high >239 mg/dL, High LAB TRIGLY <150 mg/dL Triglyceride 102 Result Comment: <150 mg/dL, Normal 150-199 mg/dL, Borderline high 200-499 mg/dL, High >499 mg/dL, Very high LAB HDL >39 mg/dL HDL-Cholesterol 40 Result Comment: 40-59 mg/dL, Acceptable >59 mg/dL, High: Negative risk factor for coronary heart disease <40 mg/dL, Low: Positive risk factor for coronary heart disease LAB LDL <100 mg/dL LDL-Cholesterol High 112 Result Comment: <100 mg/dL, Optimal 100-129 mg/dL, Near optimal/above optimal 130-159 mg/dL, Borderline high 160-189 mg/dL, High >189 mg/dL, Very high Secondary prevention optimal LDL Cholesterol levels are recommended to be < 70 mg/dL LAB NONHDL <130 mg/dL Non HDL High Cholesterol 132 Result Comment: <130 mg/dL, Optimal 130-159 mg/dL, Near optimal/above optimal 160-189 mg/dL, Borderline high 190-219 mg/dL, High >219 mg/dL, Very high Secondary prevention optimal non HDL Cholesterol levels are recommended to be < 100 mg/dL LAB FT hrs Fasting Time 12 LAB VLDL <30 mg/dL VLDL Cholesterol 20 LAB TCHDL <5.10 TC:HDL Ratio 4.30 LAB LDLHDL <2.54 High LDL:HDL Ratio 2.80 Result Comment: Reference: 1. National Cholesterol Education Program ATP III Guideline At-A-Glance Quick Desk Reference: National Heart, Lung, and Blood [place]. National Institutes of Health. 2001: NIH Publication No. 01-3305. 2. An International Atherosclerosis Society position paper: global recommendations for the management of dyslipidemia: executive summary, Atherosclerosis. 2014: 232(2):410-413. Performed By: #### BMP, LIPB, PSA #### [facility] [address] [place], [place] [address] PSA, DIAGNOSTIC Collected: 07/12/2017 Status: F Source: [place] 8:32 AM [facility] REPOSITORY TYPE CODE TESTS RESULT OUT OF REFERENCE UNITS RANGE LAB PSA 0.00-2.59 ng/mL PSA, High Diagnostic 2.92 Result Comment: Total PSA test methodology used is the Electrochemiluminescence Immunoassay. The presence of an abnormal result flag in this range (2.6 to 4.0 ng/mL) should not necessarily be an automatic indicator for prostate biopsy. For an individual patient, the significance of a PSA level should be interpreted in a broad clinical context, including age, race, family history, digital rectal exam, prostate size, results of prior te sting (prostate biopsy, free PSA, PCA3), and use of 5-alpha reductase inhibitors. Considering the high incidence of asymptomatic cancer in the general population that may not pose an ultimate risk to a patient, the decision to recommend urological evaluation or prostate biopsy should be individualized after consideration of all these factors. REFERENCE: Zahira Haley M.D., M.P.H., Dylan Spears M.D., Ph.D., Robert Bagley M.D., Christin East, M.P.H., Eri Hillman ScLevi. Effect of Verification Bias on Screening for Prostate Cancer by Measurement of Prostatic Specific Antigen. N Engl J Med 2003,349:335-42. Performed By: #### BMP, LIPB, PSA #### [facility] [address] [place], [place] [address] CNC Observed: 06/27/2017 Status: COMPLETED Source: [place] 12:00 AM [facility] REPOSITORY Letter Text Chicho Rosasncer [address] [place] [address] 06/27/2017 [facility] #: [id number] Dear , Due to a change in the provider's schedule it has been necessary to reschedule your Appointment. Your original appointment was scheduled for 07/26/2017 at 10:00 AM with Harshil Goodwin M.D. Your new appointment is now scheduled on 07/19/2017 at 10:00 AM with Harshil Goodwin M.D. If this new appointment is not convenient for you, please contact our office at [phone]. Thank you for choosing the [facility] as your Healthcare Provider . Sincerely, Internal Medicine Appointment Office ALLERGIES ALLERGIES DATE TYPE / CODE NAME / CODE REACTION SEVERITY SOURCE 05/05/2018 Drug meperidine diaphoretic,pal Unknown [place] Allergy/416 HCl/[id number](RX patations [facility] [id number]([facility] ED [place]) Repository 06/27/2008 DRUG MEPERIDINE [facility] INGREDI/[address] [place] [address](SNOM Repository ED CT) ENCOUNTERS ENCOUNTERS ADMIT/DISCHARGE ACCOUNT ADMITTING ENCOUNTER LOCATION SOURCE NUMBER CLASS 05/14/2018 [id number] Ambulatory BMSBuilding:W [facility] Repository 05/13/2018 [id number] Agustín Sargent Ambulatory BMSBuilding:Gael Herrera MS.[facility] Repository 05/13/2018 [id number] Agustín Sargent Ambulatory BMSBuilding:Gael Herrera MS.[facility] Repository 05/13/2018/05/15/20 [id number] Agustín Sargent Inpatient [facility] Katie [facility] ing:GD6Ackp: Repository [id number]: 1 04/07/2018/04/07/20 [id number] Ambulatory [address] Repository 04/06/2018 [id number] [facility] ing:CT Repository 03/31/2018 [id number] Ambulatory [facility] ing:NM Repository 03/17/2018/03/18/20 [id number] Ambulatory [address] Repository 03/17/2018/03/18/20 [id number] Ambulatory [address] Repository 03/17/2018/03/17/20 [id number] Ambulatory [address] Repository 03/10/2018 [id number] [facility] ing:LABSPEC Repository 02/17/2018 [id number] [facility] ing:LAB Repository 01/26/2018/01/28/20 [id number] Ambulatory [address] Repository 01/10/2018/01/11/20 [id number] Ambulatory [address] Repository 12/15/2017 [id number] Ambulatory [facility] ing:LAB.FUTUR Repository E 11/19/2017/11/20/19 [id number] Ambulatory [address] Repository 11/19/2017/11/20/19 [id number] Ambulatory [address] Repository 11/05/2017/11/08/19 [id number] Ambulatory [address] Repository 07/19/2017/07/19/19 [id number] Ambulatory [address] Repository 07/12/2017/07/12/[id number] Repository PAYERS PAYERS ENCOUNTER GUARANTOR PAYER SUBSCRIBER SOURCE 05/14/2018 CHICHO E Primary CHICHO E [place] [id number] Insurance:MEDICARE SPENCERDOB: [facility] [id number] Number: [facility] [address] [place] [id number]: (330) Date:2018-03-31 [phone] (HP) 05/14/2018 Secondary CHICHO E Nela Insurance:AARPPolicy SPENCERDOB: Community Number: [id number] [id number] Repository Date:5272-97-29[address], [place] [address]ID: 05/14/2018 Tertiary NOT GIVENUNK Nela Insurance:SELF PAY [facility] Number: Effective Repository Date:2018-05-14 05/13/2018 CHICHO E Primary CHICHO E [place] [id number] Insurance:MEDICARE SPENCERDOB: [facility] [id number] Number: [place] [address] [id number]: ([phone]) Date:2018-03-31 [phone] () 05/13/2018 Secondary CHICHO E Nela Insurance:AARPPolicy SPENCERDOB: Community Number: [id number] Hospital [id number] Repository Date:1894-49-67YS [address], [place] [address]BT: 05/13/2018 Tertiary NOT GIVENUNK [place] Insurance:SELF PAY [facility] Number: Effective Repository Date:2018-05-13 05/13/2018 CHICHO E Primary CHICHO E Nela [id number] Insurance:MEDICARE SPENCERDOB: [facility] [id number] Number: Repository [address] [id number]: (330) Date:2018-03-31 [phone] (HP) 05/13/2018 Secondary CHICHO E [place] Insurance:AARPPolicy SPENCERDOB: Community Number: [id number] Hospital [id number] Repository Date:9423-75-08AP [facility] [id number], [place] [address]TB: 05/13/2018 Tertiary NOT GIVENUNK [place] Insurance:SELF PAY [facility] Number: Effective Repository Date:2018-05-13 05/13/2018 CHICHO E Primary CHICHO E [place] [id number] Insurance:MEDICARE SPENCERDOB: [id number]: [place]ository [address] [id number]: (330) Date:2018-03-31 [phone] () 05/13/2018 Secondary CHICHO E [place] Insurance:AARPPolicy SPENCERDOB: Community Number: [id number] Hospital [id number] Repository Date:0772-39-32YG [address], [place] [address]ZF: 05/13/2018 Tertiary NOT GIVENUNK [place] Insurance:SELF PAY [facility] Number: Effective Repository Date:2018-03-31 04/06/2018 CHICHO E Primary CHICHO E Nela [id number] Insurance:MEDICARE SPENCERDOB: [facility] [id number] CenterIT Number: Repository [address] [place] [id number]: (330) Date:2018-03-30 [phone] (HP) 04/06/2018 Secondary CHICHO E [place] Insurance:AARPPolicy SPENCERDOB: Community Number: [id number] Hospital [id number] Repository Date:5219-16-77[address], [place] [address]CC: 04/06/2018 Tertiary NOT GIVENUNK [place] Insurance:SELF PAY [facility] Number: Effective Repository Date:2018-03-30 03/31/2018 CHICHO E Primary CHICHO E [place] [id number] Insurance:MEDICARE SPENCERDOB: [facility] [id number] Number: [place] [id number]: (330) Date:2018-03-30 [phone] (HP) 03/31/2018 Secondary CHICHO E [place] Insurance:AARPPolicy SPENCERDOB: Community Number: [id number] Hospital [id number] Repository Date:7332-21-27JX [facility] [address], [place] [address]UO: 03/31/2018 Tertiary NOT GIVENUNK [place] Insurance:SELF PAY [facility] Number: Effective Repository Date:2018-03-30 03/10/2018 Chicho E Primary Chicho E [place] [id number] Insurance:MEDICARE SpencerDOB: [facility] [id number] Number: [place]ository [address] [id number]: (330) Date:2018-03-10 [phone] (HP) 03/10/2018 Secondary Chicho E [place] Insurance:AARPPolicy SpencerDOB: Community Number: [id number] Hospital [id number] Repository Date:7437-96-72PK [address], [place] [address]VF: 03/10/2018 Tertiary NOT GIVENUNK [place] Insurance:SELF PAY [facility] Number: Effective Repository Date:2018-03-10 02/17/2018 Chicho E Primary Chicho E [place] [id number] Insurance:MEDICARE SpencerDOB: [facility] [id number] Number: Repository [address] [place] [address] [id number]: (330) Date:2018-02-17 [phone] (HP) 02/17/2018 Secondary Chicho E [place] Insurance:AARPPolicy SpencerDOB: Community Number: [id number] Hospital [id number] Repository Date:3572-39-61HA [facility] [address], [place] [address]GG: 02/17/2018 Tertiary NOT GIVENUNK [place] Insurance:SELF PAY [facility]: Effective Repository Date:2018-02-17 12/15/2017 Chicho E Primary Chicho E [place] [id number] Insurance:MEDICARE SpencerDOB: [facility] [id number], [place] Number: Repository [id number]: 330 [id number] [phone] (HP) Date:2017-12-15 12/15/2017 Secondary Chicho E [place] Insurance:AARPPolicy SpencerDOB: Community Number: [id number] Hospital [id number] Repository Date:3475-98-74RR [address], [place] [address]FU: 12/15/2017 Tertiary NOT GIVENUNK Nela Insurance:SELF PAY [facility] Number: Effective Repository Date:2017-12-15
== END 2018-05-15 09:05 | disposition home or self-care (01) | DRG 707 ==
LOC: ACINP 06:23 → MS2 07:47
PROVIDERS: Anesthesiology; Admitting Provider Urology; Family Provider Internal Medicine; PCP Internal Medicine; Referring Provider Urology; Visit Provider Urology
PROC: 0VT04ZZ Resection of Prostate, Percutaneous Endoscopic Approach (ICD-10-PCS; CPT 55866; principal; 2018-05-13 08:10)
DX: C61 Malignant neoplasm of prostate (principal); N13.8 Other obstructive and reflux uropathy; J98.11 Atelectasis; N40.1 Benign prostatic hyperplasia with lower urinary tract symptoms; R35.0 Frequency of micturition; R35.1 Nocturia; R39.15 Urgency of urination; Z87.891 Personal history of nicotine dependence; E78.5 Hyperlipidemia, unspecified; I10 Essential (primary) hypertension; R09.02 Hypoxemia
CPT/HCPCS: 36415; 71045; 80048; 85027; 88304; 88305; 88307; 88309; 93005; J7120; A4216; J1940; J2405

== ENCOUNTER → 2018-08-18 09:19 | Outpatient (CLI) | payer MEDICARE, OTHER, SELFPAY ==
[2018-08-18 10:54] LABS: PSA,Total- Diagnostic < 0.01 ng/mL (0.0-4.0)
== END ==
PROVIDERS: Family Provider Internal Medicine; PCP Internal Medicine; Referring Provider Nurse Practitioner Adult Health; Visit Provider Nurse Practitioner Adult Health
DX: C61 Malignant neoplasm of prostate (principal)
CPT/HCPCS: 36415; 84153

== ENCOUNTER → 2019-02-13 10:35 | Outpatient (CLI) | payer MEDICARE, OTHER, SELFPAY ==
[2019-02-13 11:34] LABS: PSA,Total- Diagnostic < 0.01 ng/mL (0.0-4.0)
== END ==
PROVIDERS: Family Provider Internal Medicine; PCP Internal Medicine; Referring Provider Urology; Visit Provider Urology
DX: C61 Malignant neoplasm of prostate (principal)
CPT/HCPCS: 36415; 84153

== ENCOUNTER → 2019-08-14 08:52 | Outpatient (CLI) | payer MEDICARE, OTHER, SELFPAY ==
[2019-08-14 10:28] LABS: PSA,Total- Diagnostic < 0.01 ng/mL (0.0-4.0)
== END ==
LOC: LAB.FUTURE 08:56 → LAB 08:57
PROVIDERS: PCP Internal Medicine; Referring Provider Urology; Visit Provider Urology
DX: C61 Malignant neoplasm of prostate (principal)
CPT/HCPCS: 36415; 84153

== ENCOUNTER → 2024-11-15 | Outpatient (CLI) | payer MEDICARE, OTHER, SELFPAY ==
--- NOTE | 2024-11-15 09:43 | ECHOD_ITS ---
Reason For Study Reason For Study: Murmur Procedure This was a 2D Doppler, Color Flow transthoracic echocardiogram. Exam performed in department. Left Ventricle Normal LV size. Left ventricular systolic function is normal. Stage 1 diastolic dysfunction. No regional wall motion abnormalities noted. Right Ventricle Normal RV size. Normal systolic function. Atria Normal left atrium. Normal right atrium. Mitral Valve Normal mitral valve. Mild-Moderate (1-2+) eccentric mitral valve insufficiency. Tricuspid Valve Normal tricuspid valve. Mild (1+) tricuspid valve insufficiency. Pulmonary artery systolic pressure is 35 mmHg. Aortic Valve Mild focal aortic valve calcification. Peak aortic valve gradient 20 mmHg. Mean aortic valve gradient 11 mmHg. Mild (1+) aortic valve insufficiency. Pulmonic Valve Normal pulmonic valve. Great Vessels Normal aortic root. The pulmonary artery is normal size. Inferior vena cava collapse with respiration. Pericardium/Pleural No pericardial effusion. MMode/2D Measurements & Calculations LVIDd: 5.0 cm IVSd: 1.1 cm LVOT diam: 2.4 cm LVIDs: 3.1 cm LVPWd: 1.1 cm LVOT area: 4.4 cm2 RVDd: 4.0 cm FS: 39.1 % Ao root diam: 3.7 cm LAV(MOD-bp): 51.2 ml LVAd ap4: 29.3 cm2 LAV(MOD-bp) Indexed: 28.1 ml/m2 LVLd ap4: 8.0 cm LAV(MOD-sp2): 48.0 ml EDV(MOD-sp4): 89.5 ml LAV(MOD-sp4): 53.6 ml EDV(sp4-el): 91.6 ml LVAs ap4: 15.8 cm2 LVLs ap4: 6.4 cm ESV(MOD-sp4): 34.6 ml ESV(sp4-el): 33.2 ml EF(MOD-sp4): 61.4 % EF(sp4-el): 63.8 % SV(MOD-sp4): 54.9 ml SV(sp4-el): 58.4 ml Ao sinus diam: 3.8 cm SI(MOD-sp4): 30.1 ml/m2 Ao ST Junction: 2.9 cm LA A4 area: 18.8 cm2 LA dimension(2D): 4.4 cm TAPSE: 2.3 cm RA A4 area: 16.9 cm2 Time Measurements MV dec time: 0.23 sec Doppler Measurements & Calculations MV E max tin: 85.4 cm/sec Lat Peak E' Tin: 9.7 cm/sec Med Peak E' Tin: 9.0 cm/sec MV A max tin: 92.3 cm/sec E/E' lat: 8.8 E/E' med: 9.5 MV E/A: 0.93 MV V2 max: 108.7 cm/sec MV P1/2t max tin: 98.4 cm/sec Ao V2 max: 225.5 cm/sec MV max P.7 mmHg MV P1/2t: 84.0 msec Ao max P.4 mmHg MV V2 mean: 61.9 cm/sec MV dec slope: 343.0 cm/sec2 Ao V2 mean: 160.1 cm/sec MV mean P.8 mmHg Ao mean P.7 mmHg MV V2 VTI: 37.8 cm MVA(P1/2t): 2.6 cm2 Ao V2 VTI: 54.2 cm MVA(VTI): 2.7 cm2 AV (velocity ratio): 0.43 MONET(I,D): 1.9 cm2 MONET(V,D): 2.0 cm2 AI max tin: 265.3 cm/sec LV V1 max: 101.8 cm/sec MR max tin: 510.8 cm/sec AI max P.2 mmHg LV V1 max P.2 mmHg MR max P.4 mmHg LV V1 mean P.4 mmHg AI dec slope: 147.5 cm/sec2 LV V1 mean: 74.1 cm/sec AI P1/2t: 526.9 msec LV V1 VTI: 23.4 cm SV(LVOT): 101.9 ml PA V2 max: 101.1 cm/sec TR max tin: 276.7 cm/sec PA V2 mean: 73.5 cm/sec TR max P.6 mmHg ECHO/Echo Complete Interpretation Summary Normal LV size. Left ventricular systolic function is normal. Stage 1 diastolic dysfunction. Mean aortic valve gradient 11 mmHg. Ordering Physician: Cooper Gordon Referring Physician: Cooper Gordon Performed By: Corey Venegas RCS
== END | disposition home or self-care (01) ==
LOC: CVS 09:43
PROVIDERS: PCP Internal Medicine; Referring Provider Internal Medicine Cardiovascular Disease; Visit Provider Internal Medicine Cardiovascular Disease
DX: I35.0 Nonrheumatic aortic (valve) stenosis (principal); R01.1 Cardiac murmur, unspecified
CPT/HCPCS: 93306